=== PATIENT | female | born 1985 | race Caucasian/White ===

== ENCOUNTER 2017-02-25 09:23 | Emergency (ER) | payer OTHER ==
[2017-02-25 09:34] VITALS: BP 107/60; PULSE 83; TEMP 98.1; BMI 24.5
--- NOTE | 2017-02-25 10:06 | PDOC ---
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 Patient reports that rash usually starts on the time of her period this month has worsened. Been applying alcohol, symptoms are worsening. Denies any new lotions or soaps or detergents. No respiratory difficulty, no wheezing. No difficulty swallowing. Past Medical History: Denies. Allergies: No known allergies Medications: None Family History: Non-contributory Social History: Denies smoking, alcohol use, or IVDU Review of Systems GENERAL/CONSTITUTIONAL: No fever or chills. No weakness. No weight change. HEAD, EYES, EARS, NOSE AND THROAT: No change in vision. No ear pain or discharge. No sore throat. CARDIOVASCULAR: No chest pain or shortness of breath. RESPIRATORY: No cough, wheezing, or hemoptysis. GASTROINTESTINAL: No nausea, vomiting, diarrhea or constipation. No rectal bleeding. GENITOURINARY: No dysuria, frequency, or change in urination. MUSCULOSKELETAL: No joint or muscle swelling or pain. No neck or back pain. SKIN: Macular pruritic rash HEMATOLOGIC/LYMPHATIC: No anemia, easy bleeding, or history of blood clots. No lymphadenopathy ALLERGIC/IMMUNOLOGIC: No hives or skin allergy. No latex allergy. Physical Exam: GENERAL: The patient is awake, alert, and fully oriented, in no acute distress. EYES: Pupils equal, round and reactive to light, extraocular movements intact, sclera anicteric, conjunctiva clear. ENT: Ears normal, nares patent, oropharynx clear without exudates. Moist mucous membranes. No uvula deviation NECK: Normal range of motion, supple without lymphadenopathy, JVD, or masses. LUNGS: Breath sounds equal, clear to auscultation bilaterally. No wheezes, and no crackles. HEART: Regular rate and rhythm, normal S1 and S2 without murmur, rub or gallop. ABDOMEN: Soft, nontender, normoactive bowel sounds. No guarding, no rebound. No masses. No bruising or abrasions MUSCULOSKELETAL: Normal range of motion, no edema. No clubbing or cyanosis. No cords, erythema, or tenderness. No CVA Tenderness NEUROLOGICAL: Cranial nerves II through XII grossly intact. Normal speech, normal gait. SKIN: Macular pruritic rash under arms, bilateral lateral knees and under bra strap. 02/25/17 10:49 Timing/Duration: reports: week Severity: Yes: moderate Location: reports: other (under arms, lateral knees, posterior torso near the bra line. ) Respiratory Risk Factors: reports: no cause identified Associated Symptoms: reports: rash Past History - Past Medical History Allergies/Adverse Reactions: Allergies Allergy/AdvReac Type Severity Reaction Status Date / Time No Known Allergies Allergy Verified 02/25/17 09:24 Home Medications: Ambulatory Orders Hydrocortisone 2.5% Lotion [Hytone 2.5% Lotion -] 1 applic TP BID #1 bottle Asthma: No Cancer: No Cardiac Disorders: No Diabetes: No HTN: No Seizures: No Thyroid Disease: No Other medical history: none - Surgical History Abdominal Surgery: Yes Appendectomy: Yes - Reproductive History Cervical CA: No Dysfunctional Uterine Bleeding: No Ectopic : No Endometrial CA: No Polycystic Ovaries: No Therapeutic (s) & number: No Tubal Ligation: No - Immunization History Immunization Up to Date: Yes - Psycho/Social/Smoking Cessation Hx Anxiety: No Suicidal Ideation: No Smoking Status: No Smoking History: Never smoked Have you smoked in the past 12 months: No Number of Cigarettes Smoked Daily: 0 Information on smoking cessation initiated: No Hx Alcohol Use: No Drug/Substance Use Hx: No Substance Use Type: None Hx Substance Use Treatment: No *Physical Exam - Vital Signs Last Vital Signs Temp Pulse Resp BP Pulse Ox 98.1 F 83 18 107/60 100 02/25/17 09:26 02/25/17 09:26 02/25/17 09:26 02/25/17 09:26 02/25/17 09:26 Medical Decision Making - Medical Decision Making 02/25/17 10:06 A/P: Patient with pruritic rash, unknown origin. May be hormonal versus a contact dermatitis, patient reports rash coincides with periods. Encourage patient to follow-up with dermatology, will treat symptoms of pruritus. Hydrocortisone 2% cream ordered which strict follow-up instructions. Patient verbalized understanding. Explained to patient she should not apply alcohol as this may worsen symptoms. *DC/Admit/Observation/Transfer Diagnosis at time of Disposition: Rash and nonspecific skin eruption - Discharge Dispostion Disposition: HOME Condition at time of disposition: Good Admit: No - Prescriptions Prescriptions: Hydrocortisone 2.5% Lotion [Hytone 2.5% Lotion -] 1 applic TP BID #1 bottle - Referrals Referrals: Clifford Gan [Non Staff, Medical] - - Patient Instructions Printed Discharge Instructions: DI for Rash Additional Instructions: No new lotion soaps or detergents Recommend follow-up with dermatology please do not apply alcohol to rash as this may worsen symptoms.
== END 2017-02-25 10:16 | disposition home or self-care (01) ==
LOC: JER 09:23
DX: R21 Rash and other nonspecific skin eruption (principal)
CPT/HCPCS: 99281-25

== ENCOUNTER 2017-07-26 16:16 | Emergency (ER) | payer OTHER ==
[2017-07-26 16:35] VITALS: BMI 22.6
--- NOTE | 2017-07-26 17:23 | PDOC ---
History of Present Illness - General History Source: Patient Exam Limitations: No Limitations - History of Present Illness Initial Comments: 07/26/17 18:18 The patient is a 31 year old female, with a significant past medical history of frequent vaginal infections and anemia, who presents to the emergency department with RLQ pain and epigastric pain for approximately 5 days. The patient reports lifting a heavy box 6 days ago and in the evening she noted a mass in her RLQ with associated pain. Patient reports associated nausea, vomiting(nonbloody/nonbilious), diarrhea(2-5 episodes per day), but no constipation. She reports a subjective fever, chills, and headache since today. Patient reports taking tylenol for the pain with minimal relief of symptoms. She denies any cough or dizziness. She denies any vaginal bleeding or spotting. Patient reports contacting her PCP, Dr. Lafleur, who thought patient had a hernia and would contact her for further evaluation. Patient reports coming in today, because her pain is the worse it has been all week. She reports some dysuria and urinary frequency, but denies any hematuria or urgency. She denies any chest pain, shortness of breath, diaphoresis, or palpitations. Patient reports her LMP was approximately 15 days ago. Allergies: NKDA Past Surgical History: Appendectomy, C-SectionsX2 Social History: Non smoker. No ETOH or recreational drug use. PCP: Dr. Del Real <Katya Lockwood - Last Filed: 07/26/17 18:18> <Nichole Corey - Last Filed: 07/26/17 18:52> - General Chief Complaint: Pain Stated Complaint: CYST PAIN Time Seen by Provider: 07/26/17 17:14 Past History <Katya Lockwood - Last Filed: 07/26/17 18:18> - Past Medical History Asthma: No Cancer: No Cardiac Disorders: No Diabetes: No HTN: No Seizures: No Thyroid Disease: No - Surgical History Abdominal Surgery: Yes Appendectomy: Yes - Reproductive History Cervical CA: No Dysfunctional Uterine Bleeding: No Ectopic : No Endometrial CA: No Polycystic Ovaries: No Therapeutic (s) & number: No Tubal Ligation: No - Immunization History Immunization Up to Date: Yes - Suicide/Smoking/Psychosocial Hx Smoking Status: No Smoking History: Never smoked Have you smoked in the past 12 months: No Number of Cigarettes Smoked Daily: 0 Information on smoking cessation initiated: No Hx Alcohol Use: No Drug/Substance Use Hx: No Substance Use Type: None Hx Substance Use Treatment: No <Nichole Corey - Last Filed: 07/26/17 18:52> - Past Medical History Allergies/Adverse Reactions: Allergies Allergy/AdvReac Type Severity Reaction Status Date / Time No Known Allergies Allergy Verified 07/26/17 16:32 Home Medications: Ambulatory Orders Hydrocortisone 2.5% Lotion [Hytone 2.5% Lotion -] 1 applic TP BID #1 bottle Review of Systems - Review of Systems Able to Perform ROS?: Yes Comments:: 07/26/17 18:18 GENERAL/CONSTITUTIONAL: Yes: fever, chills. No weakness. HEAD, EYES, EARS, NOSE AND THROAT: No change in vision. No ear pain or discharge. No sore throat. GASTROINTESTINAL: Yes nausea, vomiting, diarrhea, RLQ/epigastric pain. No constipation. GENITOURINARY: Yes dysuria, frequency. No hematuria or urgency. PELVIC: No vaginal bleeding or discharge. CARDIOVASCULAR: No chest pain or shortness of breath. RESPIRATORY: No cough, wheezing, or hemoptysis. MUSCULOSKELETAL: Yes RLQ pain secondary to possible hernia. No other joint or muscle swelling or pain. No neck or back pain. SKIN: No rash NEUROLOGIC: No headache, vertigo, loss of consciousness, or change in strength/ sensation. ENDOCRINE: No increased thirst. No abnormal weight change. HEMATOLOGIC/LYMPHATIC: No anemia, easy bleeding, or history of blood clots. ALLERGIC/IMMUNOLOGIC: No hives or skin allergy. <Katya Lockwood - Last Filed: 07/26/17 18:18> *Physical Exam - Vital Signs Last Vital Signs Temp Pulse Resp BP Pulse Ox 98.0 F 61 18 114/77 100 07/26/17 16:32 07/26/17 16:32 07/26/17 16:32 07/26/17 16:32 07/26/17 16:32 - Physical Exam Comments: 07/26/17 18:18 Constitutional: Awake, alert, oriented. No acute distress. Head: Normocephalic. Atraumatic Eyes: PERRL. EOMI. Conjunctivae are not pale. ENT: Mucous membranes are moist and intact. Posterior pharynx without exudates or erythema. Uvula midline. Neck: Supple. Full ROM. No lymphadenopathy. Cardiovascular: Regular rate. Regular rhythm. S1, S2 regular. Distal pulses are 2+ and symmetric. Pulmonary/Chest: No evidence of respiratory distress. Clear to auscultation bilaterally No wheezing, rales or rhonchi. Abdominal: Diffuse tenderness epigastrically, and in the RLQ/LLQs. Soft and non-distended. No rebound, guarding or rigidity. No organomegaly. No palpable masses. Good bowel sounds. Back: No CVA tenderness. Lower midline incision. No hernia. Musculoskeletal: No edema. No cyanosis. No clubbing. Full range of motion in all extremities. No calf tenderness. Radial/pedal pulses are intact and 2+ bilaterally Skin: Skin is warm and dry. No petechiae. No purpura. Neurological: Alert and oriented to person, place, and time. Cranial nerves II -XII are grossly intact. Normal speech. Strength is grossly symmetric. No sensory deficits. Psychiatric: Good eye contact. Normal interaction, affect and behavior. <Katya Lockwood - Last Filed: 07/26/17 18:18> - Vital Signs Last Vital Signs Temp Pulse Resp BP Pulse Ox 98.0 F 61 18 114/77 100 07/26/17 16:32 07/26/17 16:32 07/26/17 16:32 07/26/17 16:32 07/26/17 16:32 <Nichole Corey - Last Filed: 07/26/17 18:52> ED Treatment Course - LABORATORY CBC & Chemistry Diagram: 07/26/17 18:30 07/26/17 18:30 <Nichole Corey - Last Filed: 07/26/17 18:52> Medical Decision Making - Medical Decision Making 07/26/17 18:15 a/p: 31yo female with diffuse lower abd pain assoc with n/v/d -labs -ct abd/pelvis -ivf hydration -ua -nausea control -poss colitis vs gastroenteritis vs partial bowel obstruction 07/26/17 18:51 pt will be signed out to the oncoming ED physician pending labs and imaging. <Nichole Corey - Last Filed: 07/26/17 18:52> *DC/Admit/Observation/Transfer - Attestations Scribe Attestion: 07/26/17 18:19 Documentation prepared by Katya Lockwood, acting as electromedical equipment repairer for Nichole Corey DO. <Katya Lockwood - Last Filed: 07/26/17 18:18> - Attestations Physician Attestion: 07/26/17 18:52 I, Dr. Nichole Corey DO, attest that this document has been prepared under my direction and personally reviewed by me in its entirety. I further attest, that it accurately reflects all work, treatment, procedures and medical decision -making performed by me. <Nichole Corey - Last Filed: 07/26/17 18:52> Diagnosis at time of Disposition: Abdominal pain - Referrals Referrals: Lisa Simms MD [Primary Care Provider] -
[2017-07-26] MEDS ORDERED: FAMOTIDINE 20 MG/50 ML IVPB 50 ML IVPB ONE ×2 (17:57→18:06)
[2017-07-26] MEDS ORDERED: ONDANSETRON 4 MG/2 ML VIAL IVPUSH ONE (17:57)
[2017-07-26] MEDS ORDERED: SODIUM CHLORIDE 0.9% 1000 ML INFUS.BAG IV ONE (17:57)
[2017-07-26] MEDS ORDERED: ONDANSETRON 4 MG/2 ML VIAL ONE (18:06)
[2017-07-26] MEDS ORDERED: morphine CARPU-JECT 2 MG/1 ML DISP.SYRIN IVPUSH ONE (18:07)
[2017-07-26 18:49] LABS: BASOPHIL 0.5 % (0-2.0); EOSINOPHIL 2.1 % (0-4.5); MCH 29.4 pg (25.7-33.7); MCHC 33.9 g/dl (32.0-36.0); MEAN CELL VOLUME 86.9 fl (80-96); MEAN PLT VOLUME 8.3 fl (7.5-11.1); NEUTROPHILS 70.1 % (42.8-82.8); PLATELET COUNT 304 K/MM3 (134-434); RDW 13.4 % (11.6-15.6)
[2017-07-26 18:54] LABS: URINE APPEARANCE SLCLOUDY; URINE BILIRUBIN NEGATIVE (NEGATIVE); URINE BLOOD 2+ (NEGATIVE); URINE COLOR LTYELLOW; URINE GLUCOSE (UA) NEGATIVE (NEGATIVE); URINE KETONE NEGATIVE (NEGATIVE); URINE NITRITE NEGATIVE (NEGATIVE); URINE PROTEIN NEGATIVE (NEGATIVE); URINE UROBILINOGEN NEGATIVE mg/dL (0.2-1.0)
[2017-07-26 19:18] LABS: INR 1.03 (0.82-1.09); PROTHROMBIN TIME (PATIENT) 11.6 SEC (9.98-11.88)
[2017-07-26 19:20] LABS: ACTIVATED PTT 28.2 SECONDS (26.9-34.4)
[2017-07-26 19:26] LABS: ALBUMIN 4.4 g/dl (3.4-5.0); ALK PHOS 90 U/L (45-117); ANION GAP 9 (8-16); BILIRUBIN,TOTAL 0.3 mg/dL (0.2-1.0); CALCIUM 9.2 mg/dL (8.5-10.1); CO2 23 mmol/L (21-32); CREATININE 0.6 mg/dL (0.55-1.02); GLUCOSE,RANDOM 86 mg/dL (74-106); MAGNESIUM 2.3 mg/dL (1.8-2.4); SGOT/AST 12 U/L (15-37); SGPT/ALT 15 U/L (12-78); TOT PROT 8.6 g/dl (6.4-8.2)
--- NOTE | 2017-07-26 19:36 | PDOC ---
*Physical Exam - Vital Signs Last Vital Signs Temp Pulse Resp BP Pulse Ox 98.0 F 61 18 114/77 100 07/26/17 16:32 07/26/17 16:32 07/26/17 16:32 07/26/17 16:32 07/26/17 16:32 - Physical Exam Comments: 07/26/17 22:38 Exam: Copious amounts of vaginal discharge, CMT, uterus is normal size <Stacia Braswell - Last Filed: 07/26/17 22:38> - Vital Signs Last Vital Signs Temp Pulse Resp BP Pulse Ox 98.0 F 61 18 114/77 100 07/26/17 16:32 07/26/17 16:32 07/26/17 16:32 07/26/17 16:32 07/26/17 16:32 <Isaías Borrero - Last Filed: 07/26/17 22:58> ED Treatment Course - LABORATORY CBC & Chemistry Diagram: 07/26/17 18:30 07/26/17 18:30 - ADDITIONAL ORDERS Additional order review: Laboratory Results 07/26/17 07/26/17 07/26/17 18:30 18:30 18:30 PT with INR 11.60 INR 1.03 PTT (Actin FS) 28.2 Sodium 137 Potassium 4.1 Chloride 105 Carbon Dioxide 23 Anion Gap 9 BUN 12 D Creatinine 0.6 Creat Clearance w eGFR > 60 Random Glucose 86 D Calcium 9.2 Magnesium 2.3 D Total Bilirubin 0.3 D AST 12 L D ALT 15 D Alkaline Phosphatase 90 D Total Protein 8.6 H D Albumin 4.4 D Urine Color Ltyellow Urine Appearance Slcloudy Urine pH 5.0 Ur Specific [place] 1.020 Urine Protein Negative Urine Glucose (UA) Negative Urine Ketones Negative Urine Blood 2+ H Urine Nitrite Negative Urine Bilirubin Negative Urine Urobilinogen Negative Ur Leukocyte Esterase Negative Urine RBC 12 Urine WBC 4 Ur Epithelial Cells Few Urine Bacteria Rare Urine Mucus Rare Urine HCG, Qual Negative 07/26/17 18:30 RBC 5.26 H D MCV 86.9 MCHC 33.9 RDW 13.4 MPV 8.3 Neutrophils % 70.1 Lymphocytes % 20.2 D Monocytes % 7.1 Eosinophils % 2.1 Basophils % 0.5 - Medications Given in the ED: ED Medications Discontinued Medications Generic Name Dose Route Start Last Admin Trade Name Freq PRN Reason Stop Dose Admin Fentanyl 25 mcg 07/26/17 18:35 07/26/17 18:44 Sublimaze Injection - IVPUSH 07/26/17 18:36 25 mcg ONCE ONE Administration Famotidine/Sodium Chloride 50 mls @ 100 mls/hr 07/26/17 17:57 07/26/17 18:15 Pepcid 20 Mg Premixed Ivpb - IVPB 07/26/17 18:26 100 mls/hr ONCE ONE Administration Morphine Sulfate 2 mg 07/26/17 18:07 07/26/17 18:45 Morphine Injection - IVPUSH 07/26/17 18:08 Not Given ONCE ONE Ondansetron HCl 4 mg 07/26/17 17:57 07/26/17 18:15 Zofran Injection IVPUSH 07/26/17 17:58 4 mg ONCE ONE Administration Sodium Chloride 1,000 ml 07/26/17 17:57 07/26/17 18:15 Normal Saline - IV 07/26/17 17:58 1,000 ml ONCE ONE Administration <Stacia Braswell - Last Filed: 07/26/17 22:38> - LABORATORY CBC & Chemistry Diagram: 07/26/17 18:30 07/26/17 18:30 - ADDITIONAL ORDERS Additional order review: Laboratory Results 07/26/17 07/26/17 18:30 18:30 PT with INR 11.60 INR 1.03 PTT (Actin FS) 28.2 Sodium 137 Potassium 4.1 Chloride 105 Carbon Dioxide 23 Anion Gap 9 BUN 12 D Creatinine 0.6 Creat Clearance w eGFR > 60 Random Glucose 86 D Calcium 9.2 Magnesium 2.3 D Total Bilirubin 0.3 D AST 12 L D ALT 15 D Alkaline Phosphatase 90 D Total Protein 8.6 H D Albumin 4.4 D 07/26/17 18:30 RBC 5.26 H D MCV 86.9 MCHC 33.9 RDW 13.4 MPV 8.3 Neutrophils % 70.1 Lymphocytes % 20.2 D Monocytes % 7.1 Eosinophils % 2.1 Basophils % 0.5 - Medications Given in the ED: ED Medications Discontinued Medications Generic Name Dose Route Start Last Admin Trade Name Isha PRN Reason Stop Dose Admin Fentanyl 25 mcg 07/26/17 18:35 07/26/17 18:44 Sublimaze Injection - IVPUSH 07/26/17 18:36 25 mcg ONCE ONE Administration Famotidine/Sodium Chloride 50 mls @ 100 mls/hr 07/26/17 17:57 07/26/17 18:15 Pepcid 20 Mg Premixed Ivpb - IVPB 07/26/17 18:26 100 mls/hr ONCE ONE Administration Morphine Sulfate 2 mg 07/26/17 18:07 07/26/17 18:45 Morphine Injection - IVPUSH 07/26/17 18:08 Not Given ONCE ONE Ondansetron HCl 4 mg 07/26/17 17:57 07/26/17 18:15 Zofran Injection IVPUSH 07/26/17 17:58 4 mg ONCE ONE Administration Sodium Chloride 1,000 ml 07/26/17 17:57 07/26/17 18:15 Normal Saline - IV 07/26/17 17:58 1,000 ml ONCE ONE Administration <Isaías Borrero - Last Filed: 07/26/17 22:58> *DC/Admit/Observation/Transfer <Stacia Braswell - Last Filed: 07/26/17 22:38> - Discharge Dispostion Admit: No - Attestations Physician Attestion: 07/26/17 19:35 I, Dr. Isaías Borrero, attest that this document has been prepared under my direction and personally reviewed by me in its entirety. I further attest, that it accurately reflects all work, treatment, procedures and medical decision -making performed by me. 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 Return to us if worse or any new symptoms occur. Best- Dr. Isaías Borrero - Post Discharge Activity
[2017-07-26 20:10] LABS: URINE BACTERIA RARE /hpf (NONE SEEN); URINE MUCUS RARE; URINE RBC 12 /hpf (0-3); URINE WBC 4 /hpf (3-5)
[2017-07-26 21:11] LABS: URINE LEUK ESTERASE Negative (NEGATIVE)
[2017-07-26] MEDS ORDERED: AZITHROMYCIN 1 GM PACKET PO ONE (22:37)
[2017-07-26] MEDS ORDERED: AZITHROMYCIN 250 MG TABLET ONE (22:41)
[2017-07-26] MEDS ORDERED: cefTRIAXone SODIUM 1 GM VIAL ONE (22:43)
[2017-07-26 23:18] VITALS: BP 100/61; PULSE 71; TEMP 98.5
== END 2017-07-26 23:18 | disposition home or self-care (01) ==
LOC: JER 16:16
PROC: 3E02329 Introduction of Other Anti-infective into Muscle, Percutaneous Approach (ICD-10-PCS; principal; 2017-07-26)
PROC: 3E033GC Introduction of Other Therapeutic Substance into Peripheral Vein, Percutaneous Approach (ICD-10-PCS; 2017-07-26)
PROC: 3E033NZ Introduction of Analgesics, Hypnotics, Sedatives into Peripheral Vein, Percutaneous Approach (ICD-10-PCS; 2017-07-26)
PROC: 3E033NZ Introduction of Analgesics, Hypnotics, Sedatives into Peripheral Vein, Percutaneous Approach (ICD-10-PCS; 2017-07-26)
PROC: 3E033GC Introduction of Other Therapeutic Substance into Peripheral Vein, Percutaneous Approach (ICD-10-PCS; 2017-07-26)
DX: R10.84 Generalized abdominal pain (principal); R19.03 Right lower quadrant abdominal swelling, mass and lump; N73.8 Other specified female pelvic inflammatory diseases
CPT/HCPCS: 36415; 74177-TC; 80053; 81003; 81015; 83735; 84703; 85025; 85610; 85730; 86593; 99282-25

== ENCOUNTER 2018-10-11 17:06 | Emergency (ER) | payer OTHER ==
[2018-10-11 17:14] VITALS: BMI 41.0
--- NOTE | 2018-10-11 17:21 | PDOC ---
History of Present Illness - General Chief Complaint: Headache Stated Complaint: HEAD PAIN Time Seen by Provider: 10/11/18 17:17 History Source: Patient Exam Limitations: No Limitations - History of Present Illness Initial Comments: Pt is a 32 yo F, with PMH of fibroids and ovarian cysts, who is presenting with complaints of mild headache and RLQ abdominal pain. PT states starting yesterday evening around 5 pm, she started having a "migraine headache". Pt also took a home test yesterday which was positive, and did not want to take any OTC pain medication for concern that it may affect the . This morning, she noticed RLQ abdominal pain. The pain is intermittent, sharp, and lasts only a few seconds and then resolves on its own. LMP was ~5.5 weeks ago and was normal. She has had nausea but no vomiting over the past few weeks. She has also noticed mild dysuria x2 weeks. Pt denies any fevers/chills, headache, vision changes, syncope, chest pain, palpitations, SOB, vomiting, hematuria/urgency/frequency, vaginal bleeding or discharge, diarrhea/ constipation, or leg swelling. LMP: Sep 03 Social: Pt denies any cigarette, alcohol, or drug use. Pt denies any recent travel or sick contacts. Surgical: appendectomy. Family: no relevant history. 10/11/18 18:41 Past History - Travel Traveled outside of the country in the last 30 days: No Close contact w/someone who was outside of country & ill: No - Past Medical History Allergies/Adverse Reactions: Allergies Allergy/AdvReac Type Severity Reaction Status Date / Time No Known Allergies Allergy Verified 10/11/18 17:12 Home Medications: Ambulatory Orders NK [No Known Home Medication] 10/11/18 Asthma: No Cancer: No Cardiac Disorders: No COPD: No Diabetes: No HTN: No Seizures: No Thyroid Disease: No - Surgical History Abdominal Surgery: Yes Appendectomy: Yes - Reproductive History Cervical CA: No Dysfunctional Uterine Bleeding: No Ectopic : No Endometrial CA: No Polycystic Ovaries: No Therapeutic (s) & number: No Tubal Ligation: No - Immunization History Immunization Up to Date: Yes - Suicide/Smoking/Psychosocial Hx Smoking Status: No Smoking History: Never smoked Have you smoked in the past 12 months: No Number of Cigarettes Smoked Daily: 0 Hx Alcohol Use: No Drug/Substance Use Hx: No Substance Use Type: None Hx Substance Use Treatment: No Review of Systems - Review of Systems Able to Perform ROS?: Yes Is the patient limited Wolof proficient: No Constitutional: Yes: Weight Stable. No: Chills, Diaphoresis, Fever, Loss of Appetite, Weakness HEENTM: No: Recent change in vision, Nose Congestion Respiratory: No: Cough, Orthopnea, Shortness of Breath Cardiac (ROS): No: Chest Pain, Irregular Heart Rate, Syncope ABD/GI: Yes: See HPI, Nausea, Abdominal cramping. No: Constipated, Diarrhea, Poor Appetite, Poor Fluid Intake, Vomiting : Yes: Burning, Dysuria. No: Discharge, Frequency, Flank Pain, Hematuria, Incontinence, Pain, Urgency Musculoskeletal: No: Back Pain, Joint Pain Integumentary: No: Rash Neurological: Yes: Headache. No: Weakness, Unsteady Gait, Dizziness Psychiatric: No: Sleep Pattern Change, Change in Appetite Endocrine: No: Increased Urine, Change in Weight Hematologic/Lymphatic: No: Anemia, Blood Clots, Easy Bleeding, Easy Bruising All Other Systems: Reviewed and Negative *Physical Exam - Vital Signs Last Vital Signs Temp Pulse Resp BP Pulse Ox 98.7 F 94 H 16 130/84 99 10/11/18 17:12 10/11/18 17:12 10/11/18 17:12 10/11/18 17:12 10/11/18 17:12 - Physical Exam General Appearance: Yes: Nourished, Appropriately Dressed. No: Apparent Distress HEENT: positive: EOMI, DAVID, Normal ENT Inspection, Normal Voice, Pharynx Normal , Hearing Grossly Normal. negative: Scleral Icterus (R), Scleral Icterus (L), Pharyngeal Erythema, Tonsillar Exudate, Tonsillar Erythema Neck: positive: Trachea midline, Normal Thyroid, Supple. negative: Tender, Rigid, Decreased range of motion, Lymphadenopathy (R), Lymphadenopathy (L) Respiratory/Chest: positive: Lungs Clear, Normal Breath Sounds. negative: Chest Tender, Respiratory Distress, Accessory Muscle Use, Crackles, Wheezing Cardiovascular: positive: Regular Rhythm, Regular Rate, S1, S2. negative: Edema , JVD, Murmur Vascular Pulses: Carotid (R): 4+, Carotid (L): 4+ Female Pelvic Exam: positive: normal external exam, cervical os closed, normal adnexa, normal size ovaries, adnexal tenderness (R adnexal tenderness). negative: CMT, discharge, vaginal bleeding Gastrointestinal/Abdominal: positive: Normal Bowel Sounds, Flat, Soft. negative : Tender, Organomegaly, Pulsatile Mass, Distended, Guarding, Rebound Rectal Exam: positive: deferred Lymphatic: negative: Adenopathy, Tenderness Musculoskeletal: positive: Normal Inspection. negative: CVA Tenderness Extremity: positive: Normal Capillary Refill, Normal Inspection, Normal Range of Motion, Pelvis Stable. negative: Tender, Pedal Edema Integumentary: positive: Normal Color, Dry, Warm. negative: Jaundice, Clammy, Diaphoresis, Rash Neurologic: positive: virtualization architect II-XII NML intact, Fully Oriented, Alert, Normal Mood/ Affect, Normal Response, Motor Strength 5/5 Moderate Sedation - Procedure Monitoring Vital Signs: Procedure Monitoring Vital Signs Temperature 98.7 F 10/11/18 17:12 Pulse Rate 94 H 10/11/18 17:12 Respiratory Rate 16 10/11/18 17:12 Blood Pressure 130/84 10/11/18 17:12 O2 Sat by Pulse Oximetry (%) 99 10/11/18 17:12 Medical Decision Making - Medical Decision Making Pt was seen at bedside, also will be seen by attending Dr. Hines. Pt presenting with complaints of mild headache and RLQ abdominal pain. PT states starting yesterday evening around 5 pm, she started having a "migraine headache". Pt also took a home test yesterday which was positive, and did not want to take any OTC pain medication for concern that it may affect the . This morning, she noticed RLQ abdominal pain. The pain is intermittent, sharp, and lasts only a few seconds and then resolves on its own. LMP was ~5.5 weeks ago and was normal. She has had nausea but no vomiting over the past few weeks. She has also noticed mild dysuria x2 weeks. Pt denies any fevers/chills, headache, vision changes, syncope, chest pain, palpitations, SOB, vomiting, hematuria/urgency/frequency, vaginal bleeding or discharge, diarrhea/ constipation, or leg swelling. Vitals stable, pt afebrile. Pt appears comfortable and can ambulate. PE showed mild R adnexal tenderness, physiologic vaginal discharge, no bleeding in the vaginal canal. Cervix closed, no CMT tenderness. Heart and lung sounds clear. Considering normal vs ovarian cyst vs UTI vs ectopic vs ovarian torsion. Pt has had appendix removed, unlikely appe. Ordered work-up including UA, urine culture, urine beta-hcg, and transvaginal US (r/o ectopic, cysts). Provided 650 mg PO tylenol for improvement of mild headache. Will continue to reassess pt and monitor for symptomatic improvement. 10/11/18 18:32 Pt taken for US. Urine was sent to lab. 10/11/18 18:41 Urine test positive. Pending UA and US read. 10/11/18 19:32 UA negative for infection. Received verbal read from imaging on-call (Dr. Norris), as US had mislabeled the ovarian pictures. Dr. Norris stated the gestational sac was 5 weeks, 4 days, with no pole visualized yet. R ovarian cyst. No evidence of ectopic or ovarian torsion. 10/11/18 21:05 Pt can be discharged to home with follow-up. Pt advised to follow-up with PCP in 1-2 days and has been referred to ob/gynecology (Dr. Castrejon). Strict return precautions provided with pt understanding. 10/11/18 21:07 *DC/Admit/Observation/Transfer Diagnosis at time of Disposition: Qualifiers: Weeks of gestation: less than 8 weeks Qualified Code(s): Z3A.01 - Less than 8 weeks gestation of Ovarian cyst Qualifiers: Laterality: right Qualified Code(s): N83.201 - Unspecified ovarian cyst, right side - Discharge Dispostion Disposition: HOME Condition at time of disposition: Good Decision to Admit order: No - Referrals Referrals: Lisa Simms MD [Staff Physician] - Sonny Castrejon MD [Staff Physician] - - Patient Instructions Printed Discharge Instructions: DI for Ovarian Cyst, DI for Abdominal Pain -- Early Additional Instructions: You were seen in the ER today for abdominal pain. The results of your labs and imaging today showed a positive test. Please follow-up with your primary care doctor and the biomedical field service engineer doctor within 1-2 days to discuss your visit and make sure your symptoms have improved. Please return to the ER if you have any worsening pain, development of fevers or chills, loss of consciousness, inability to tolerate food or fluids, or any other concerns. Your ultrasound showed a gestational sac that was 5 weeks, 4 days, with no pole visualized yet. There was also a R ovarian cyst. No evidence of ectopic or ovarian torsion. Print Language: INDONESIAN - Post Discharge Activity
[2018-10-11] MEDS ORDERED: ACETAMINOPHEN 325 MG TABLET (FP) PO ONE (17:49)
[2018-10-11] MEDS ORDERED: ACETAMINOPHEN 325 MG TABLET (FP) ONE (17:56)
[2018-10-11 18:17] LABS: HCG,QUALITATIVE URINE Positive
[2018-10-11 19:14] LABS: URINE APPEARANCE SLCLOUDY; URINE BILIRUBIN NEGATIVE (<2.0 mg/dL); URINE COLOR YELLOW; URINE GLUCOSE (UA) 2+ (NEGATIVE); URINE KETONE NEGATIVE (NEGATIVE); URINE LEUK ESTERASE NEGATIVE (NEGATIVE); URINE NITRITE NEGATIVE (NEGATIVE); URINE PROTEIN NEGATIVE (NEGATIVE); URINE UROBILINOGEN NEGATIVE mg/dL (0.2-1.0)
--- NOTE | 2018-10-11 19:26 | PDOC ---
Attending Attestation - HPI HPI: 10/11/18 19:26 The patient is a 32 year old female, A1, with a PMH of ovarian cyst and fibroid presenting to the ER with a frontal headache, nausea, and right lower quadrant pain since yesterday. Patient denies taking any medication. Patient states she had a positive test yesterday. Patient denies any history of kidney stones. Patient admits to having an appendectomy. Patient is not currently following with an ACQUISITION COST ESTIMATOR. LMP was on September 03, 2018, but notes she usually has irregular menstrual cycles. Allergies: NKDA Surgical Hx: appendectomy, 2 C-sections Social History: No reported alcohol, drug or cigarette use. <Maylin Garcia - Last Filed: 10/11/18 19:26> - Resident Resident Name: Magi Cabello - ED Attending Attestation I have performed the following: I have examined & evaluated the patient, The case was reviewed & discussed with the resident, I agree w/resident's findings & plan - HPI HPI: 10/11/18 19:23 Pt comes concerned because home preg test was positive and she has abd pain and a slight ACHARYA, which is nor reduced - Physicial Exam PE: 10/11/18 19:24 Agree with resident exam - Medical Decision Making 10/11/18 19:26 Awaiting official sono results. 10/11/18 19:26 Pt's blood type is A+ she has no vag bleed on exam or history of it during this . No need to worry about rhogam regardless. 10/12/18 05:23 Patient Name: LUIS WILL THIS IS A PRELIMINARY REPORT FROM [facility]ING [facility] DATE OF SERVICE: 2018-10-11 18:14:39 IMAGES: 47 EXAM: TRANSVAGINAL US PREG . Grayscale, color flow and Doppler images provided. HISTORY: 32-year-old female with right lower quadrant pain. Cyst versus ectopic . COMPARISON: None. Findings: Uterus is retroverted in position. Uterus measures 6.9 x 5.1 x 5.6 cm. Intrauterine gestational sac with sac diameter consistent with 5 weeks 4 days. No yolk sac or pole identified within the gestational sac. Right ovary measures 3.8 x 3.0 x 3.1 cm. There is a right ovarian cyst measuring 2.0 x 2.8 x 2.0 cm. Color flow and Doppler arterial/venous signal to the right ovary demonstrated. Case discussed with referring technologist US jami Gómez; the left ovary is inadvertently labeled right ovary. The left ovary is normal configuration measuring 2.9 x 0.9 x 1.0 cm. Color-flow and Doppler arterial/venous signal to the left ovary demonstrated. No free fluid noted within the cul-de-sac. Impression: 1. Left ovary mislabeled with this examination. This will have to be rectified for a final report. 2. 2.8 x 2.0 x 2.0 cm right ovarian cyst. No evidence of right ovarian torsion. 3. Intrauterine gestational sac with gestational sac diameter 5 weeks 4 days; no pole or yolk sac present. viability not documented with this exam. <Tata Hines - Last Filed: 10/12/18 05:23>
[2018-10-11 19:44] LABS: EPI CELLS FEW /HPF (FEW); URINE MUCUS RARE
[2018-10-12 02:36] VITALS: BP 117/71; PULSE 80; TEMP 98.5
== END 2018-10-11 22:08 | disposition home or self-care (01) ==
LOC: JER 17:06
DX: O26.891 Other specified pregnancy related conditions, first trimester (principal); O34.81 Maternal care for other abnormalities of pelvic organs, first trimester; N83.201 Unspecified ovarian cyst, right side; Z3A.01 Less than 8 weeks gestation of pregnancy
CPT/HCPCS: 76817-TC; 81003; 81015; 84703; 87077; 87086; 99283-25

== ENCOUNTER 2018-10-15 11:11 | Emergency (ER) | payer OTHER ==
[2018-10-15 11:23] VITALS: BMI 21.4
[2018-10-15] MEDS ORDERED: SODIUM CHLORIDE 1,000 ML IV STA (11:49)
[2018-10-15] MEDS ORDERED: ACETAMINOPHEN 1000 MG/100 ML VIAL (NON FORMULARY) IVPB ONE (11:49)
[2018-10-15] MEDS ORDERED: ACETAMINOPHEN INJECTION 100 ML IVPB ONE (11:55)
--- NOTE | 2018-10-15 12:10 | PDOC ---
History of Present Illness - General Chief Complaint: Pain Stated Complaint: PAIN Time Seen by Provider: 10/15/18 11:41 - History of Present Illness Initial Comments: 10/15/18 12:06 The patient is a 32 year old female, A1, with a PMH of ovarian cyst and fibroid presenting to the ER with a nausea, lower abdominal pain, and back pain for the past 3 days. Patient was seen in this ER on 10/11/18 for similar symptoms. Patient had an ultrasound then which showed an intrauterine at 5 weeks and 4 days as well as a 2.8 cm right ovarian cyst. Patient was discharged home on Tylenol but reports she has not been taking it at home. Patient returns today because her lower back pain is persistent, and she is continuing to have intermittent sharp pains to her lower abdomen with associated nausea. Patient denies any vaginal spotting. Patient reports having threatened abortions two other times in the past and one miscarriage. Patient reports having an appendectomy and 2 c-sections in the past. No other surgeries. The patient denies chest pain, shortness of breath, headache and dizziness. Denies fever, chills, vomit, diarrhea and constipation. Denies vaginal bleeding or discharge, dysuria, frequency, urgency and hematuria. Allergies: NKDA Surgical Hx: appendectomy, 2 C-sections Social History: No reported alcohol, drug or cigarette use. Past History - Past Medical History Allergies/Adverse Reactions: Allergies Allergy/AdvReac Type Severity Reaction Status Date / Time No Known Allergies Allergy Verified 10/11/18 17:12 Home Medications: Ambulatory Orders NK [No Known Home Medication] 10/11/18 Asthma: No Cancer: No Cardiac Disorders: No COPD: No Diabetes: No HTN: No Seizures: No Thyroid Disease: No - Surgical History Abdominal Surgery: Yes Appendectomy: Yes - Reproductive History Is Patient Now?: Yes (5 weeks ) (#): 4 Para: 2 Cervical CA: No Dysfunctional Uterine Bleeding: No Ectopic : No Endometrial CA: No Polycystic Ovaries: No Therapeutic (s) & number: No Tubal Ligation: No Spontaneous : 1 - Immunization History Immunization Up to Date: Yes - Suicide/Smoking/Psychosocial Hx Smoking Status: No Smoking History: Never smoked Have you smoked in the past 12 months: No Number of Cigarettes Smoked Daily: 0 Information on smoking cessation initiated: No Hx Alcohol Use: No Drug/Substance Use Hx: No Substance Use Type: None Hx Substance Use Treatment: No Review of Systems - Review of Systems Comments:: 10/15/18 12:07 GENERAL/CONSTITUTIONAL: No fever or chills. No weakness. HEAD, EYES, EARS, NOSE AND THROAT: No change in vision. No ear pain or discharge. No sore throat. CARDIOVASCULAR: No chest pain, no shortness of breath, no loss of consciousness RESPIRATORY: No cough, wheezing, or hemoptysis. GASTROINTESTINAL: No vomiting, diarrhea or constipation. (+) Lower abdominal pain. (+) nausea. GENITOURINARY: No dysuria, frequency, or change in urination. MUSCULOSKELETAL: No joint or muscle swelling or pain. No neck pain. (+) Lower back pain. SKIN: No rash NEUROLOGIC: No vertigo, no change in strength/sensation. ENDOCRINE: No increased thirst. No abnormal weight change. HEMATOLOGIC/LYMPHATIC: No anemia, easy bleeding, or history of blood clots. ALLERGIC/IMMUNOLOGIC: No hives or skin allergy. *Physical Exam - Vital Signs Last Vital Signs Temp Pulse Resp BP Pulse Ox 98.2 F 81 18 121/65 100 10/15/18 11:16 10/15/18 11:16 10/15/18 11:16 10/15/18 11:16 10/15/18 11:16 - Physical Exam Comments: 10/15/18 12:08 "GENERAL: Awake, alert, and fully oriented, in no acute distress. HEAD: No signs of trauma EYES: PERRLA, EOMI, sclera anicteric, conjunctiva clear ENT: Auricles normal inspection, hearing grossly normal, nares patent, oropharynx clear without exudates. Moist mucosa NECK: Nontender, no stepoffs, Normal ROM, supple, no lymphadenopathy, JVD, or masses LUNGS: Breath sounds equal, clear to auscultation bilaterally. No wheezes, and no crackles HEART: Regular rate and rhythm, normal S1 and S2, no murmurs, rubs or gallops ABDOMEN: + mild suprapubic TTP, normoactive bowel sounds. No guarding, no rebound. BACK: No CVAT, no midline TTP, no stepoffs EXTREMITIES: Normal range of motion, no edema. No clubbing or cyanosis. No cords, erythema, or tenderness NEUROLOGICAL: Cranial nerves II through XII intact. 5/5 strength and sensation in all extremities, Normal speech, normal gait, normal cerebellar function SKIN: Warm, Dry, normal turgor, no rashes or lesions noted. : no CMT, normal physiologic discharge, no bleeding, os closed Moderate Sedation - Procedure Monitoring Vital Signs: Procedure Monitoring Vital Signs Temperature 98.2 F 10/15/18 11:16 Pulse Rate 81 10/15/18 11:16 Respiratory Rate 18 10/15/18 11:16 Blood Pressure 121/65 10/15/18 11:16 O2 Sat by Pulse Oximetry (%) 100 10/15/18 11:16 ED Treatment Course - LABORATORY CBC & Chemistry Diagram: 10/15/18 12:00 10/15/18 12:00 - RADIOLOGY Radiology Studies Ordered: Category Date Time Status TRANSVAGINAL ULTRASOUND US [US] Stat Ultrasound 10/15/18 11:47 Ordered Medical Decision Making - Medical Decision Making 10/15/18 12:08 32 F with lower abdominal pain and back pain with nausea. Pt with known ovarian cyst on R side, but it was only 2 cm. Low suspicion for torsion but will r/o with US. WIll also obtain TVUS to r/o ectopic, as pt did not have yolk sac visualized on last US. - Labs, HCG, UA - TVUS - IVF, tylenol 10/15/18 13:43 Labs wnl HCG 13,000. No prior to compare. TVUS shows IUP @ approx 6 weeks with no FHR. Suspect demise Pt informed of results Will f/u with OB for repeat US and blood test. Pt reassessed - reports resolution of pain with tylenol. repeat exam benign. Pt is well appearing, with normal vitals. Clinically stable for DC at this time. I discussed the physical exam findings, ancillary test results and final diagnoses with the patient. I answered all of the patient's questions. The patient was satisfied with the care received and felt comfortable with the discharge plan and treatment plan. The patient agrees to follow up with the primary care physician within 24-72 hours. *DC/Admit/Observation/Transfer Diagnosis at time of Disposition: Abdominal pain affecting - Discharge Dispostion Disposition: HOME - Referrals Referrals: Adonay Bales MD [Staff Physician] - - Patient Instructions Printed Discharge Instructions: DI for Abdominal Pain -- Early Additional Instructions: Your ultrasound today did not show a heartbeat. This could mean that you are having a miscarriage. You must follow up with an station air traffic control specialist within 1 week for repeat ultrasound and blood tests. Call the number provided to make an appointment. If you experience worsening pain, bleeding, vomiting, fevers, or any other concerning symptoms, return to the ER immediately. Segundo sonograma de hoy no mostr un latido . Benham podra significar que est teniendo un aborto involuntario. Debe realizar un seguimiento con un obstetra / gineclogo dentro de 1 semana para repetir el ultrasonido y los anlisis de mir. Llame al nmero proporcionado para hacer christa sammy. Si tiene un empeoramiento del dolor, sangrado, vmitos, fiebres o cualquier otro sntoma relacionado con los sntomas, regrese a la rodríguez de emergencias inmediatamente. - Post Discharge Activity - Attestations Physician Attestion: 10/15/18 13:55 I, Dr. Marshal Will MD, attest that this document has been prepared under my direction and personally reviewed by me in its entirety. I further attest, that it accurately reflects all work, treatment, procedures and medical decision -making performed by me.
[2018-10-15 12:25] LABS: BASO % 0.5 % (0-2.0); EOS % 1.7 % (0-4.5); HEMATOCRIT 39.5 % (32.4-45.2); HEMOGLOBIN 13.9 GM/dL (10.7-15.3); LYMPH % 17.1 % (8-40); MCH 30.7 pg (25.7-33.7); MCHC 35.1 g/dl (32.0-36.0); MEAN CELL VOLUME 87.4 fl (80-96); MEAN PLT VOLUME 8.1 fl (7.5-11.1); MONO % 8.9 % (3.8-10.2); NEUT % 71.8 % (42.8-82.8); PLATELET COUNT 266 K/MM3 (134-434); RBC 4.52 M/mm3 (3.60-5.2); RDW 14.3 % (11.6-15.6)
[2018-10-15 12:30] LABS: URINE APPEARANCE CLOUDY; URINE BILIRUBIN NEGATIVE (<2.0 mg/dL); URINE COLOR YELLOW; URINE GLUCOSE (UA) 2+ (NEGATIVE); URINE KETONE NEGATIVE (NEGATIVE); URINE LEUK ESTERASE NEGATIVE (NEGATIVE); URINE NITRITE NEGATIVE (NEGATIVE); URINE PROTEIN NEGATIVE (NEGATIVE); URINE UROBILINOGEN NEGATIVE mg/dL (0.2-1.0)
[2018-10-15 12:49] LABS: ALBUMIN 3.7 g/dl (3.4-5.0); ALK PHOS 66 U/L (45-117); ANION GAP 8 MMOL/L (8-16); BILIRUBIN,TOTAL 0.3 mg/dL (0.2-1); BLOOD UREA NITROGEN 8 mg/dL (7-18); CALCIUM 8.7 mg/dL (8.5-10.1); CHLORIDE 108 mmol/L (98-107); CO2 22 mmol/L (21-32); CREATININE 0.5 mg/dL (0.55-1.3); GLUCOSE,RANDOM 79 mg/dL (74-106); SGOT/AST 22 U/L (15-37); SGPT/ALT 22 U/L (13-61); SODIUM 139 mmol/L (136-145); TOT PROT 7.4 g/dl (6.4-8.2)
[2018-10-15 14:15] VITALS: BP 119/73; PULSE 82; TEMP 98.3
== END 2018-10-15 14:13 | disposition home or self-care (01) ==
LOC: JER 11:11
PROC: 3E033NZ Introduction of Analgesics, Hypnotics, Sedatives into Peripheral Vein, Percutaneous Approach (ICD-10-PCS; principal; 2018-10-15)
PROC: 3E0337Z Introduction of Electrolytic and Water Balance Substance into Peripheral Vein, Percutaneous Approach (ICD-10-PCS; 2018-10-15)
DX: O26.891 Other specified pregnancy related conditions, first trimester (principal); R10.9 Unspecified abdominal pain
CPT/HCPCS: 36415; 76830-TC; 80053; 81003; 84702; 85025; 87086; 96361; 96374; 99283-25; J0131; J7030

== ENCOUNTER 2018-10-31 16:07 | Emergency (ER) | payer OTHER ==
[2018-10-31 16:13] VITALS: BP 101/65; PULSE 82; TEMP 98.2; BMI 20.7
--- NOTE | 2018-10-31 16:22 | PDOC ---
Rapid Medical Evaluation Chief Complaint: Vaginal Sxs Time Seen by Provider: 10/31/18 16:14 Medical Evaluation: Allergies Allergy/AdvReac Type Severity Reaction Status Date / Time No Known Allergies Allergy Verified 10/31/18 16:12 Vital Signs Temp Pulse Resp BP Pulse Ox 98.2 F 82 18 101/65 100 10/31/18 16:10 10/31/18 16:10 10/31/18 16:10 10/31/18 16:10 10/31/18 16:10 10/31/18 16:18 Pt c/o: left lower abd pain with spotting , 8 weeks , had u/s done last week by dr alvarado Pt on brief exam: vss, pelvic deferred in triage Pt ordered for: labs, urine and u/s Pt to proceed to the ED Discharge Disposition - Diagnosis Abdominal pain affecting - Referrals - Patient Instructions - Post Discharge Activity
[2018-10-31] MEDS ORDERED: ACETAMINOPHEN 325 MG TABLET (FP) PO ONE (17:26)
--- NOTE | 2018-10-31 17:29 | PDOC ---
History of Present Illness - General Chief Complaint: Vaginal Sxs Stated Complaint: LEFT SIDE PAIN ([id number] ) Time Seen by Provider: 10/31/18 16:14 History Source: Patient - History of Present Illness Timing/Duration: reports: constant Past History - Past Medical History Allergies/Adverse Reactions: Allergies Allergy/AdvReac Type Severity Reaction Status Date / Time No Known Allergies Allergy Verified 10/31/18 16:12 Home Medications: Ambulatory Orders NK [No Known Home Medication] 10/11/18 Asthma: No Cancer: No Cardiac Disorders: No COPD: No Diabetes: No HTN: No Seizures: No Thyroid Disease: No - Surgical History Abdominal Surgery: Yes Appendectomy: Yes - Reproductive History (#): 4 Para: 2 Cervical CA: No Dysfunctional Uterine Bleeding: No Ectopic : No Endometrial CA: No Polycystic Ovaries: No Therapeutic (s) & number: No Tubal Ligation: No Spontaneous : 1 - Immunization History Immunization Up to Date: Yes - Suicide/Smoking/Psychosocial Hx Smoking Status: No Smoking History: Never smoked Have you smoked in the past 12 months: No Number of Cigarettes Smoked Daily: 0 Information on smoking cessation initiated: No Hx Alcohol Use: No Drug/Substance Use Hx: No Substance Use Type: None Hx Substance Use Treatment: No Review of Systems - Review of Systems Constitutional: No: Chills, Fever ABD/GI: Yes: Abdominal cramping. No: Nausea, Vomiting : No: Dysuria, Discharge, Flank Pain, Hematuria Musculoskeletal: No: Back Pain *Physical Exam - Vital Signs Last Vital Signs Temp Pulse Resp BP Pulse Ox 98.2 F 82 18 101/65 100 10/31/18 16:10 10/31/18 16:10 10/31/18 16:10 10/31/18 16:10 10/31/18 16:10 - Physical Exam General Appearance: Yes: Appropriately Dressed. No: Apparent Distress HEENT: positive: Normal Voice Neck: positive: Supple Respiratory/Chest: negative: Respiratory Distress Gastrointestinal/Abdominal: positive: Soft Musculoskeletal: negative: CVA Tenderness Integumentary: positive: Dry, Warm Neurologic: positive: Fully Oriented, Alert, Normal Mood/Affect Moderate Sedation - Procedure Monitoring Vital Signs: Procedure Monitoring Vital Signs Temperature 98.2 F 10/31/18 16:10 Pulse Rate 82 10/31/18 16:10 Respiratory Rate 18 10/31/18 16:10 Blood Pressure 101/65 10/31/18 16:10 O2 Sat by Pulse Oximetry (%) 100 10/31/18 16:10 ED Treatment Course - LABORATORY CBC & Chemistry Diagram: 10/31/18 17:25 10/31/18 17:25 Medical Decision Making - Medical Decision Making 10/31/18 17:26 32-year-old female, [id number], ~ 8 weeks by dates, no care as of yet, here with severe L pelvic pain since last night with trace bright red blood when she wipes, otherwise no vaginal bleeding. Denies dysuria, nausea, vomiting , fever or chills See exam 1st trimester pain Stable and well jessica -tylenol -labs -US 10/31/18 18:47 Pt signed out to ORALIA Garcia at this time pending labs/US *DC/Admit/Observation/Transfer Diagnosis at time of Disposition: Abdominal pain affecting - Referrals Referrals: Adonay Bales MD [Primary Care Provider] - - Patient Instructions - Post Discharge Activity
[2018-10-31 17:41] LABS: BASO % 0.3 % (0-2.0); EOS % 1.7 % (0-4.5); HEMATOCRIT 39.5 % (32.4-45.2); HEMOGLOBIN 13.8 GM/dL (10.7-15.3); LYMPH % 14.8 % (8-40); MCHC 34.9 g/dl (32.0-36.0); MEAN PLT VOLUME 8.1 fl (7.5-11.1); MONO % 8.2 % (3.8-10.2); PLATELET COUNT 286 K/MM3 (134-434); RBC 4.44 M/mm3 (3.60-5.2); RDW 14.4 % (11.6-15.6); WHITE BLOOD COUNT 11.1 K/mm3 (4.0-10.0)
[2018-10-31 17:43] LABS: URINE APPEARANCE SLCLOUDY; URINE BILIRUBIN NEGATIVE (<2.0 mg/dL); URINE COLOR YELLOW; URINE GLUCOSE (UA) NEGATIVE (NEGATIVE); URINE KETONE NEGATIVE (NEGATIVE); URINE LEUK ESTERASE NEGATIVE (NEGATIVE); URINE NITRITE NEGATIVE (NEGATIVE); URINE PROTEIN NEGATIVE (NEGATIVE); URINE UROBILINOGEN NEGATIVE mg/dL (0.2-1.0)
[2018-10-31 18:14] LABS: ALBUMIN 3.6 g/dl (3.4-5.0); ALK PHOS 64 U/L (45-117); ANION GAP 7 MMOL/L (8-16); BILIRUBIN,TOTAL 0.2 mg/dL (0.2-1); BLOOD UREA NITROGEN 10 mg/dL (7-18); CALCIUM 8.4 mg/dL (8.5-10.1); CHLORIDE 106 mmol/L (98-107); CO2 24 mmol/L (21-32); CREATININE 0.6 mg/dL (0.55-1.3); GLUCOSE,RANDOM 87 mg/dL (74-106); SGOT/AST 25 U/L (15-37); SGPT/ALT 42 U/L (13-61); SODIUM 136 mmol/L (136-145); TOT PROT 7.2 g/dl (6.4-8.2)
[2018-10-31] MEDS ORDERED: ACETAMINOPHEN 325 MG TABLET (FP) ONE (19:09)
--- NOTE | 2018-10-31 20:39 | PDOC ---
*Physical Exam - Vital Signs Last Vital Signs Temp Pulse Resp BP Pulse Ox 98.2 F 82 18 101/65 100 10/31/18 16:10 10/31/18 16:10 10/31/18 16:10 10/31/18 16:10 10/31/18 16:10 - Physical Exam Comments: 10/31/18 20:35 GENERAL: Well developed, well nourished. Awake and alert. No acute distress. HEENT: Normocephalic, atraumatic. PERRLA, EOMI. No conjunctival pallor. Sclera are non- icteric. Moist mucous membranes. Oropharynx is clear. NECK: Supple. Full ROM. No JVD. Carotid pulses 2+ and symmetric, without bruits. No thyromegaly. No lymphadenopathy. CARDIOVASCULAR: Regular rate and rhythm. No murmurs, rubs, or gallops. Distal pulses are 2+ and symmetric. PULMONARY: No evidence of respiratory distress. Lungs clear to auscultation bilaterally. No wheezing, rales or rhonchi. ABDOMINAL: Soft. Non-tender. Non-distended. No rebound or guarding. No organomegaly. Normoactive bowel sounds. MUSCULOSKELETAL Normal range of motion at all joints. No bony deformities or tenderness. No CVA tenderness. EXTREMITIES: No cyanosis. No clubbing. No edema. No calf tenderness. SKIN: Warm and dry. Normal capillary refill. No rashes. No jaundice. ED Treatment Course - LABORATORY CBC & Chemistry Diagram: 10/31/18 17:25 10/31/18 17:25 - ADDITIONAL ORDERS Additional order review: Laboratory Results 10/31/18 10/31/18 10/31/18 17:25 17:25 17:25 Sodium Potassium Chloride Carbon Dioxide Anion Gap BUN Creatinine Creat Clearance w eGFR Random Glucose Calcium Total Bilirubin AST ALT Alkaline Phosphatase Total Protein Albumin Beta HCG, Quant 984657.1 Urine Color Yellow Urine Appearance Slcloudy Urine pH 6.0 Ur Specific Flushing 1.021 Urine Protein Negative Urine Glucose (UA) Negative Urine Ketones Negative Urine Blood Negative Urine Nitrite Negative Urine Bilirubin Negative Urine Urobilinogen Negative Ur Leukocyte Esterase Negative Blood Type A POSITIVE Antibody Screen Negative 10/31/18 17:25 Sodium 136 Potassium 4.0 Chloride 106 Carbon Dioxide 24 Anion Gap 7 L BUN 10 Creatinine 0.6 Creat Clearance w eGFR > 60 Random Glucose 87 Calcium 8.4 L Total Bilirubin 0.2 AST 25 ALT 42 Alkaline Phosphatase 64 Total Protein 7.2 Albumin 3.6 Beta HCG, Quant Urine Color Urine Appearance Urine pH Ur Specific Flushing Urine Protein Urine Glucose (UA) Urine Ketones Urine Blood Urine Nitrite Urine Bilirubin Urine Urobilinogen Ur Leukocyte Esterase Blood Type Antibody Screen 10/31/18 17:25 RBC 4.44 MCV 89.0 MCHC 34.9 RDW 14.4 MPV 8.1 Neutrophils % 75.0 Lymphocytes % 14.8 Monocytes % 8.2 Eosinophils % 1.7 Basophils % 0.3 - Medications Given in the ED: ED Medications Discontinued Medications Generic Name Dose Route Start Last Admin Trade Name Isha PRN Reason Stop Dose Admin Acetaminophen 650 mg 10/31/18 17:26 10/31/18 19:09 Tylenol - PO 10/31/18 17:27 650 mg ONCE ONE Administration Progress Note - Progress Note Progress Note: 4 para 2011 This is a 32-year-old female with no medical history presents to the emergency department complaining of left-sided pelvic pain since approximately 2300 hrs. last evening with tinge amount of bright red blood when wiping but denied any fever or chills, nausea/vomiting, headache, dizziness, lightheadedness, neck/ back pain, flank pains, chest pain, shortness of breath, abdominal pains, urinary symptoms: Frequency/urgency/hesitancy, hematuria. Patient denied having any care as of yet. Transvaginal ultrasound this evening: Single viable intrauterine gestation at approximately 8 weeks and 1 day. A 2.9 cm left ovarian cyst is noted which appears mildly increased in size since the previous exam of 10/15/2018. *DC/Admit/Observation/Transfer Diagnosis at time of Disposition: Abdominal pain affecting , Threatened Ovarian cyst Qualifiers: Laterality: left Qualified Code(s): N83.202 - Unspecified ovarian cyst, left side - Discharge Dispostion Disposition: HOME Condition at time of disposition: Stable Decision to Admit order: No - Referrals Referrals: Adonay Bales MD [Primary Care Provider] - Gino Bryant MD [Staff Physician] - - Patient Instructions Printed Discharge Instructions: DI for Threatened Additional Instructions: Increase fluids Pelvic rest Be sure to follow-up with your neon light installer/abrading machine tender this week Your beta hCG today is 662511.1 Your preliminary transvaginal ultrasound shows a single viable intrauterine gestation at approximately 8 weeks and 1 day. There is a 2.9 cm left ovarian cysts which appears increased in size since 10/15 Return back to the emergency department for severe/persistent or worsening symptoms - Post Discharge Activity
== END 2018-10-31 21:07 | disposition home or self-care (01) ==
LOC: JER 16:07
DX: O26.891 Other specified pregnancy related conditions, first trimester (principal); Z3A.08 8 weeks gestation of pregnancy; O20.0 Threatened abortion; R10.9 Unspecified abdominal pain
CPT/HCPCS: 36415; 76817-TC; 80053; 81003; 84702; 85025; 86850; 86900; 86901; 87086; 99282-25

== ENCOUNTER 2018-11-15 08:31 | Emergency (ER) | payer OTHER ==
[2018-11-15 08:36] VITALS: BP 116/70; PULSE 77; TEMP 98.3; BMI 21.6
--- NOTE | 2018-11-15 09:03 | PDOC ---
History of Present Illness <StricklandRupal Marky - Last Filed: 11/15/18 10:17> - General History Source: Patient Exam Limitations: Language Barrier <Traci Martin - Last Filed: 11/15/18 10:42> - General Chief Complaint: Vaginal Bleeding Stated Complaint: VAGANIAL BLEEDING Time Seen by Provider: 11/15/18 08:56 Past History <Rupal Strickland Marky - Last Filed: 11/15/18 10:17> - Past Medical History Asthma: No Cancer: No Cardiac Disorders: No COPD: No Diabetes: No HTN: No Seizures: No Thyroid Disease: No - Surgical History Abdominal Surgery: Yes Appendectomy: Yes - Reproductive History (#): 4 Para: 2 Cervical CA: No Dysfunctional Uterine Bleeding: No Ectopic : No Endometrial CA: No Polycystic Ovaries: No Therapeutic (s) & number: No Tubal Ligation: No Spontaneous : 1 - Immunization History Immunization Up to Date: Yes - Suicide/Smoking/Psychosocial Hx Smoking Status: No Smoking History: Never smoked Have you smoked in the past 12 months: No Number of Cigarettes Smoked Daily: 0 Hx Alcohol Use: No Drug/Substance Use Hx: No Substance Use Type: None Hx Substance Use Treatment: No <Traci Martin - Last Filed: 11/15/18 10:42> - Past Medical History Allergies/Adverse Reactions: Allergies Allergy/AdvReac Type Severity Reaction Status Date / Time No Known Allergies Allergy Verified 11/15/18 08:36 Home Medications: Ambulatory Orders Vits/Iron/Folic Acid [Select-Ob Caplet] 1 each PO DAILY 10/31/18 *Physical Exam - Vital Signs Last Vital Signs Temp Pulse Resp BP Pulse Ox 98.3 F 77 18 116/70 11/15/18 08:33 11/15/18 08:33 11/15/18 08:33 11/15/18 08:33 <Rupal Stricklandtye - Last Filed: 11/15/18 10:17> - Vital Signs Last Vital Signs Temp Pulse Resp BP Pulse Ox 98.3 F 77 18 116/70 11/15/18 08:33 11/15/18 08:33 11/15/18 08:33 11/15/18 08:33 - Physical Exam General Appearance: No: Apparent Distress Respiratory/Chest: positive: Lungs Clear, Normal Breath Sounds. negative: Respiratory Distress Cardiovascular: positive: Regular Rhythm, Regular Rate, S1, S2. negative: Murmur Female Pelvic Exam: positive: vaginal bleeding (small amount of blood in vault, cervical os closed). negative: adnexal tenderness Gastrointestinal/Abdominal: positive: Normal Bowel Sounds, Soft. negative: Tender, Distended, Guarding, Rebound Integumentary: positive: Normal Color Neurologic: positive: Alert, Normal Mood/Affect <Traci Martin - Last Filed: 11/15/18 10:42> Moderate Sedation - Procedure Monitoring Vital Signs: Procedure Monitoring Vital Signs Temperature 98.3 F 11/15/18 08:33 Pulse Rate 77 11/15/18 08:33 Respiratory Rate 18 11/15/18 08:33 Blood Pressure 116/70 11/15/18 08:33 O2 Sat by Pulse Oximetry (%) <Rupal Strickland - Last Filed: 11/15/18 10:17> - Procedure Monitoring Vital Signs: Procedure Monitoring Vital Signs Temperature 98.3 F 11/15/18 08:33 Pulse Rate 77 11/15/18 08:33 Respiratory Rate 18 11/15/18 08:33 Blood Pressure 116/70 11/15/18 08:33 O2 Sat by Pulse Oximetry (%) <Traci Martin - Last Filed: 11/15/18 10:42> ED Treatment Course - LABORATORY CBC & Chemistry Diagram: 11/15/18 09:30 <Rupal Strickland - Last Filed: 11/15/18 10:17> - LABORATORY CBC & Chemistry Diagram: 11/15/18 09:30 <Traci Martin - Last Filed: 11/15/18 10:42> Medical Decision Making - Medical Decision Making The patient was seen and evaluated in conjunction with midlevel provider under my direct supervision, ancillary studies were reviewed. I agree with the plan as outlined by ORALIA Martin. HPI, workup/dispo as outlined. in summary, 33 YOF ~11 wks presenting with vaginal bleeding. last visit 10/31/18 with AP and VB, ultrasound with live IUP and ovarian cyst. vitals wnl, normotension today, plan for CBC and beta recheck to trend. repeat pelvic US, eval for vs demise. CBC wnl, no anemia beta appropriate OB US with live IUP at 10 w 4d. ovarian cyst noted on left; small fluid in cul de sac, no subchorionic hematoma/bleed. 11/15/18 10:17 <StricklandRupal Marky - Last Filed: 11/15/18 10:17> - Medical Decision Making 33 y/o F around 11 weeks presents with vaginal bleeding from today at 7:30 AM, initially heavy, but now it has decreased. Patient was seen in ED 2 weeks ago for pelvic pain and scant bleeding. At that time, ultrasound confirmed IUP at 8 weeks. Denies fever, n/v, abd pain, urinary complaints. Likely threatened Will get repeat Bhcg and check ultrasound Patient was Rh positive during ED visit 2 weeks ago 11/15/18 09:03 Bhcg uptrending CBC stable Pelvic ultrasound reaffirms IUP at 10 weeks 4 days Stable for dc 11/15/18 10:39 <Traci Martin - Last Filed: 11/15/18 10:42> *DC/Admit/Observation/Transfer <Rupal Strickland - Last Filed: 11/15/18 10:17> - Discharge Dispostion Decision to Admit order: No <Traci Martin - Last Filed: 11/15/18 10:42> Diagnosis at time of Disposition: Threatened - Discharge Dispostion Disposition: HOME Condition at time of disposition: Stable - Referrals Referrals: Lisa Simms MD [Primary Care Provider] - 2 Days - Patient Instructions Printed Discharge Instructions: DI for Threatened Additional Instructions: Thank you for choosing [facility]. It was a pleasure taking care of you. Recommend pelvic rest Avoid heavy work and intercourse Continue follow-up with your OB/GYM Return to the Emergency Department if your symptoms worsen or persist, you have fever, shortness of breath, chest pain, severe abdominal pain, vomiting, heavy vaginal bleeding or other concerning symptoms. Ravi por elegir el [facility]. Fue un placer cuidar de ti. Recomienda reposo plvico Evite el trabajo pesado y las relaciones sexuales Continuar el seguimiento con gutierrez OB / GYM Regrese al Departamento de Emergencias si elizabet sntomas empeoran o persisten, tiene fiebre, falta de aliento, dolor en el pecho, dolor abdominal intenso, vmitos, sangrado vaginal intenso u otros sntomas relacionados. Print Language: CYMRAES - Post Discharge Activity
[2018-11-15 09:53] LABS: BASO % 0.3 % (0-2.0); EOS % 2.5 % (0-4.5); HEMOGLOBIN 14.4 GM/dL (10.7-15.3); LYMPH % 16.4 % (8-40); MCH 31.6 pg (25.7-33.7); MCHC 35.2 g/dl (32.0-36.0); MEAN CELL VOLUME 89.7 fl (80-96); MEAN PLT VOLUME 8.3 fl (7.5-11.1); MONO % 6.2 % (3.8-10.2); NEUT % 74.6 % (42.8-82.8); PLATELET COUNT 230 K/MM3 (134-434); RBC 4.57 M/mm3 (3.60-5.2); RDW 14.1 % (11.6-15.6); WHITE BLOOD COUNT 9.7 K/mm3 (4.0-10.0)
== END 2018-11-15 10:45 | disposition home or self-care (01) ==
LOC: JER 08:31
DX: O26.891 Other specified pregnancy related conditions, first trimester (principal); O20.0 Threatened abortion; O34.81 Maternal care for other abnormalities of pelvic organs, first trimester; N83.292 Other ovarian cyst, left side; Z3A.11 11 weeks gestation of pregnancy
CPT/HCPCS: 36415; 76801-TC; 84702; 85025; 99281-25

== ENCOUNTER 2018-11-23 19:30 | Emergency (ER) | payer OTHER ==
[2018-11-23 19:36] VITALS: BP 110/77; PULSE 98; TEMP 98.5; BMI 21.9
[2018-11-23] MEDS ORDERED: ACETAMINOPHEN 325 MG TABLET (FP) PO ONE (20:04)
[2018-11-23] MEDS ORDERED: ALBUTEROL SO4 2.5/IPRATROPIUM 0.5 INH SOL 3 ML VIAL.NEB. NEB ONE ×2 (20:04→20:07)
[2018-11-23] MEDS ORDERED: ACETAMINOPHEN 325 MG TABLET (FP) ONE (20:07)
--- NOTE | 2018-11-23 20:21 | PDOC ---
History of Present Illness - General Chief Complaint: Cold Symptoms Stated Complaint: HEADACHE/BODYACHES Time Seen by Provider: 11/23/18 19:55 History Source: Patient Exam Limitations: No Limitations - History of Present Illness Initial Comments: 11/23/18 20:18 Patient is a 33-year-old female currently 12 weeks , who presents to the ER with 2 days of body aches, chills, subjective fever, and cough. Patient states her whole body hurts. She has not taken any medication for her symptoms because she is . Patient denies vaginal bleeding, abdominal pain at this time. Denies earache, sore throat, difficulty breathing, nausea, vomiting and diarrhea. Pt did receive a flu shot this year Past History - Travel Traveled outside of the country in the last 30 days: No Close contact w/someone who was outside of country & ill: No - Past Medical History Allergies/Adverse Reactions: Allergies Allergy/AdvReac Type Severity Reaction Status Date / Time No Known Allergies Allergy Verified 11/15/18 08:36 Home Medications: Ambulatory Orders Vits/Iron/Folic Acid [Select-Ob Caplet] 1 each PO DAILY 10/31/18 Asthma: No Cancer: No Cardiac Disorders: No COPD: No CHF: No DVT: No Diabetes: No HTN: No Seizures: No Thyroid Disease: No - Surgical History Abdominal Surgery: Yes Appendectomy: Yes Gastric Stapling: No Lung Surgery: No - Reproductive History (#): 4 Para: 2 Cervical CA: No Dysfunctional Uterine Bleeding: No Ectopic : No Endometrial CA: No Polycystic Ovaries: No Therapeutic (s) & number: No Tubal Ligation: No Spontaneous : 1 - Immunization History Immunization Up to Date: Yes - Suicide/Smoking/Psychosocial Hx Smoking Status: No Smoking History: Never smoked Have you smoked in the past 12 months: No Number of Cigarettes Smoked Daily: 0 Information on smoking cessation initiated: No Hx Alcohol Use: No Drug/Substance Use Hx: No Substance Use Type: None Hx Substance Use Treatment: No Review of Systems - Review of Systems Able to Perform ROS?: Yes Comments:: 11/23/18 20:17 CONSTITUTIONAL: Present: Fever, chills, body aches Absent: diaphoresis, generalized weakness, malaise, loss of appetite HEENT: Present: rhinorrhea, nasal congestion, throat pain. Absent: difficulty swallowing, mouth swelling, ear pain, eye pain, visual Changes CARDIOVASCULAR: Absent: chest pain, loss of consciousness, palpitations, irregular heart rate, peripheral edema RESPIRATORY: Present: Cough Absent: shortness of breath, dyspnea with exertion, orthopnea, wheezing, stridor, hemoptysis GASTROINTESTINAL: Absent: abdominal pain, abdominal distension, nausea, vomiting, diarrhea, constipation, melena, hematochezia SKIN: Absent: rash, itching, pallor NEUROLOGIC: Present: headache Absent: focal weakness or paresthesias, dizziness, unsteady gait, seizure, mental status changes, bladder or bowel incontinence Is the patient limited Khmer proficient: No *Physical Exam - Vital Signs Last Vital Signs Temp Pulse Resp BP Pulse Ox 98.5 F 98 H 20 110/77 99 11/23/18 19:34 11/23/18 19:34 11/23/18 19:34 11/23/18 19:34 11/23/18 19:34 - Physical Exam Comments: 11/23/18 20:18 GENERAL: Well developed, well nourished. Awake and alert. No acute distress. HEENT: Normocephalic, atraumatic. PERRLA, EOMI. No conjunctival pallor. Sclera are non- icteric. Moist mucous membranes. Oropharynx is clear. NECK: Supple. Full ROM. No JVD. Carotid pulses 2+ and symmetric, without bruits. No thyromegaly. No lymphadenopathy. CARDIOVASCULAR: Regular rate and rhythm. No murmurs, rubs, or gallops. Distal pulses are 2+ and symmetric. PULMONARY: No evidence of respiratory distress. Lungs clear to auscultation bilaterally. No wheezing, rales or rhonchi. ABDOMINAL: Soft. Non-tender. Non-distended. No rebound or guarding. No organomegaly. Normoactive bowel sounds. MUSCULOSKELETAL Normal range of motion at all joints. No bony deformities or tenderness. No CVA tenderness. EXTREMITIES: No cyanosis. No clubbing. No edema. No calf tenderness. SKIN: Warm and dry. Normal capillary refill. No rashes. No jaundice. NEUROLOGICAL: Alert, awake, appropriate. Cranial nerves 2-12 intact. No deficits to light touch and temperature in face, upper extremities and lower extremities. No motor deficits in the in face, upper extremities and lower extremities. Normoreflexic in the upper and lower extremities. Normal speech. Toes are down- going bilaterally. Gait is normal without ataxia. PSYCHIATRIC: Cooperative. Good eye contact. Appropriate mood and affect. Moderate Sedation - Procedure Monitoring Vital Signs: Procedure Monitoring Vital Signs Temperature 98.5 F 11/23/18 19:34 Pulse Rate 98 H 11/23/18 19:34 Respiratory Rate 20 11/23/18 19:34 Blood Pressure 110/77 11/23/18 19:34 O2 Sat by Pulse Oximetry (%) 99 11/23/18 19:34 ED Treatment Course - Medications Given in the ED: ED Medications Discontinued Medications Generic Name Dose Route Start Last Admin Trade Name Isha PRN Reason Stop Dose Admin Acetaminophen 650 mg 11/23/18 20:04 11/23/18 20:10 Tylenol - PO 11/23/18 20:05 650 mg ONCE ONE Administration Albuterol/Ipratropium 1 amp 11/23/18 20:04 11/23/18 20:10 Duoneb - NEB 11/23/18 20:05 1 amp ONCE ONE Administration Medical Decision Making - Medical Decision Making 11/23/18 22:25 flu negative Strep negative Urine without evidence of infection Bedside US shows a HR of 163, good fluid DC home; most likely viral illness. Pt to f/u with ob tomorrow I discussed the physical exam findings, ancillary test results and final diagnoses with the patient. I answered all of the patient's questions. The patient was satisfied with the care received and felt comfortable with the discharge plan and treatment plan. The Patient agrees to follow up with the primary care physician/specialist within 24-72 hours. Return precautions were given. *DC/Admit/Observation/Transfer Diagnosis at time of Disposition: URI (upper respiratory infection) Qualifiers: URI type: unspecified viral URI Qualified Code(s): J06.9 - Acute upper respiratory infection, unspecified - Discharge Dispostion Disposition: HOME Condition at time of disposition: Stable Decision to Admit order: No - Referrals Referrals: Tien Mccarty MD [Staff Physician] - - Patient Instructions Printed Discharge Instructions: DI for Viral Upper Respiratory Infection -- Adult Additional Instructions: You have an upper respiratory infection, or the common cold. Your strep, flu and urine testing was negative today. Please take Tylenol 650mg every 4 hours as needed for pain not to exceed 3000 mg a day. Drink plenty of fluids. Warm tea may help your symptoms as well. Please follow up with your OB tomorrow. Return to the emergency department if you have difficulty breathing, shortness of breath, worsening pain, nausea, vomiting or if you have any changes in your symptoms. Print Language: AMHARIC - Post Discharge Activity
[2018-11-23 22:19] LABS: URINE APPEARANCE SLCLOUDY; URINE BILIRUBIN NEGATIVE (<2.0 mg/dL); URINE COLOR DKYELLOW; URINE GLUCOSE (UA) 1+ (NEGATIVE); URINE KETONE 2+ (NEGATIVE); URINE LEUK ESTERASE NEGATIVE (NEGATIVE); URINE NITRITE NEGATIVE (NEGATIVE); URINE PROTEIN NEGATIVE (NEGATIVE); URINE UROBILINOGEN NEGATIVE mg/dL (0.2-1.0)
== END 2018-11-23 22:32 | disposition home or self-care (01) ==
LOC: JERFT 19:30
PROC: 3E0F7GC Introduction of Other Therapeutic Substance into Respiratory Tract, Via Natural or Artificial Opening (ICD-10-PCS; principal; 2018-11-23)
DX: O99.89 Other specified diseases and conditions complicating pregnancy, childbirth and the puerperium (principal); J06.9 Acute upper respiratory infection, unspecified; Z3A.12 12 weeks gestation of pregnancy
CPT/HCPCS: 81003; 87070; 87086; 87804; 87880; 94640; 99281-25

== ENCOUNTER 2018-11-27 10:48 | Emergency (ER) | payer OTHER ==
--- NOTE | 2018-11-27 10:58 | PDOC ---
History of Present Illness - General Chief Complaint: SIRS, Suspected/Possible Stated Complaint: FEVER/ - History of Present Illness Initial Comments: 11/27/18 10:57 33 yo female with PMH presents with a few days of productive cough, subjective fever and chills. She states she was seen a few days ago and then was then seen today in the clinic at her OB and sent for further evaluation. She states she is 18 weeks . She endorses some pain in her chest upon inspiration and associated with her cough. Past History - Past Medical History Allergies/Adverse Reactions: Allergies Allergy/AdvReac Type Severity Reaction Status Date / Time No Known Allergies Allergy Verified 11/27/18 12:23 Home Medications: Ambulatory Orders Vits/Iron/Folic Acid [Select-Ob Chewable Caplet] 1 each PO DAILY Amox-Tr/K Cl [Augmentin - 875Mg Tablet] 1 tab PO BID #13 tablet 11/27/18 Asthma: No Cancer: No Cardiac Disorders: No COPD: No CHF: No DVT: No Diabetes: No HTN: No Seizures: No Thyroid Disease: No - Surgical History Abdominal Surgery: Yes Appendectomy: Yes Gastric Stapling: No Lung Surgery: No - Reproductive History (#): 4 Para: 2 Cervical CA: No Dysfunctional Uterine Bleeding: No Ectopic : No Endometrial CA: No Polycystic Ovaries: No Therapeutic (s) & number: No Tubal Ligation: No Spontaneous : 1 - Immunization History Immunization Up to Date: Yes - Suicide/Smoking/Psychosocial Hx Smoking Status: No Smoking History: Never smoked Have you smoked in the past 12 months: No Number of Cigarettes Smoked Daily: 0 Hx Alcohol Use: No Drug/Substance Use Hx: No Substance Use Type: None Hx Substance Use Treatment: No Review of Systems - Review of Systems Able to Perform ROS?: Yes Constitutional: Yes: Chills, Fever Respiratory: Yes: Cough, Shortness of Breath Cardiac (ROS): Yes: Chest Tightness *Physical Exam - Physical Exam Comments: 11/27/18 10:58 GEN: A&O, no acute distress HEENT: Moist mucus membranes, no exudate or erythema NECK: supple, no lymphadenopathy HEART: Tachycardic, regular rhythm, no murmur noted LUNGS: Rhonchi and decreased inspiration in the LLL ABDOMEN: Soft, nontender, consistent with states gestational age EXTREMITIES: no calf tenderness ED Treatment Course - LABORATORY CBC & Chemistry Diagram: 11/27/18 11:35 11/27/18 11:35 Medical Decision Making - Medical Decision Making 11/27/18 11:30 33 yo female 18 weeks presents with cough, fever and chills for a few days in addition to some myalgias. Unable to perform CXR due to , however clinically very likely pneumonia based on history and exam. Will give 1L LR, DuoNebs for symptomatic assistance, and Augmentin 875 mg PO for 7 days BID with first dose given here. Will instruct to drink plenty of fluids, rest, and follow up with primary care physician or return to the emergency department if not improving in 2-3 days. 11/27/18 13:17 Pt complaining of nausea following first dose of Augmentin. Will give IV reglan for now, send PO reglan to pharmacy, and recommend pt take augmentin only after eating upon D/C. Pt does also endorse some dark coffee ground colored urine. Will order UA 11/27/18 14:43 UA with 3+ Glucose, 2+ Blood, 2+ Ketones, <1 RBC. will give additional 1L fluid bolus, add on CK to labs already drawn. Story not consistent with rhabdo however will verify with CK prior to discharge. *DC/Admit/Observation/Transfer Diagnosis at time of Disposition: Community acquired bacterial pneumonia - Discharge Dispostion Disposition: HOME Condition at time of disposition: Stable Decision to Admit order: No - Prescriptions Prescriptions: Amox-Tr/K Cl [Augmentin - 875Mg Tablet] 1 tab PO BID #13 tablet - Referrals Referrals: Lisa Simms MD [Primary Care Provider] - - Patient Instructions Printed Discharge Instructions: DI for Pneumonia -- Adult, DI for Fever ( Symptom) -- Adult Additional Instructions: You were seen in the Emergency Department for a cough, fevers, and chills. You likely have a pneumonia at this time based on your story and clinical presentation and exam. You were given a Liter of fluids, a breathing treatment, and a dose of Augmentin (an antibiotic). You should take one dose of the antibiotic tonight, and then for the next 6 days you should take one tablet in the morning and one at night. You should drink plenty of fluids as well. You are also being sent Reglan to your pharmacy which you can take if you are nauseous. It is important that you take the antibiotic with food in order to prevent further nausea and vomiting. If your symptoms worsen or you are not feeling any better in 3-4 days, you should be seen by your primary doctor or return to the emergency department. - Post Discharge Activity
--- NOTE | 2018-11-27 11:06 | PDOC ---
Attending Attestation - HPI HPI: 11/27/18 11:47 The patient is a 33 year old female, A1, with a significant past medical history of ovarian cyst and fibroids, who presents to the emergency department with cough and chest tightness for about 3 days. She reports chest tightness is exacerbated with deep inspiration. She states she was seen at the clinic and referred to the ED. She states she was influenza and strep negative during an ED visit 4 days ago. The patient denies shortness of breath, headache and dizziness. The patient denies fever, chills, nausea, vomit, diarrhea and constipation. The patient denies dysuria, frequency, urgency and hematuria. Allergies: NKDA Past Surgical History: Appendectomy, C-Sections X2 Social History: Non smoker. No ETOH or recreational drug use. PCP: Dr. Del Real <Catalina Marshall - Last Filed: 11/27/18 11:47> - Resident Resident Name: Sharath Landeros - ED Attending Attestation I have performed the following: I have examined & evaluated the patient, The case was reviewed & discussed with the resident, I agree w/resident's findings & plan, Exceptions are as noted - Physicial Exam PE: 11/27/18 12:57 GENERAL: The patient is in no acute distress. HEAD: Normal with no signs of trauma. EYES: PERRLA, EOMI, sclera anicteric, conjunctiva clear. ENT: Ears normal, nares patent, oropharynx clear without exudates. Moist mucous membranes. NECK: Normal range of motion, supple without lymphadenopathy, JVD, or masses. LUNGS: Breath sounds equal, clear to auscultation bilaterally. No wheezes, and no crackles. HEART:Regular rate and rhythm, normal S1 and S2 without murmur, rub or gallop. ABDOMEN: Soft, nontender, normoactive bowel sounds. No guarding, no rebound. No masses palpable. EXTREMITIES: Normal range of motion, no edema. No clubbing or cyanosis. No erythema, or tenderness. NEUROLOGICAL: Cranial nerves II through XII grossly intact. Normal speech. No focal neurological deficits. MUSCULOSKELETAL: Back non-tender to palpation, no CVA tenderness SKIN: Warm, Dry, normal turgor, no rashes or lesions noted. - Medical Decision Making 11/27/18 12:58 Laboratory Tests 11/27/18 11/27/18 11:35 11:35 WBC 18.4 H Hgb 13.6 Hct 38.5 Plt Count 250 Sodium 134 L Potassium 3.2 L Chloride 103 Carbon Dioxide 20 L BUN 5 L Creatinine 0.4 L Random Glucose 75 11/27/18 13:47 Upon re assessment: Pt given Augmentin --> nausea and an episode of vomiting (+) cough No wheezing noted on examination UA pending Laboratory Tests 11/27/18 13:50 Urine Nitrite Negative Ur Leukocyte Esterase Negative Urine WBC (Auto) 3 Urine RBC (Auto) <1 <Jazmyn Esquivel - Last Filed: 11/28/18 20:25> Attestations - Attestations 11/27/18 11:47 Documentation prepared by Catalina Marshall, acting as chief medical officer for Jazmyn Esquivel MD <Catalina Marshall - Last Filed: 11/27/18 11:47>
[2018-11-27] MEDS ORDERED: AMOX TR/POT CLAV 875MG/125MG TABLETS (FP) PO ONE (11:10)
[2018-11-27] MEDS ORDERED: LACTATED RINGERS SOLUTION 1000 ML INFUS.BAG IV ONE ×2 (11:11→14:40)
[2018-11-27 11:12] VITALS: BMI 20.6
[2018-11-27] MEDS ORDERED: ALBUTEROL SO4 2.5/IPRATROPIUM 0.5 INH SOL 3 ML VIAL.NEB. NEB ONE ×4 (11:12→12:36)
[2018-11-27] MEDS ORDERED: AMOX TR/POT CLAV 875MG/125MG TABLETS (FP) ONE (11:26)
[2018-11-27 12:09] LABS: BASO % 0.2 % (0-2.0); EOS % 0.1 % (0-4.5); HEMATOCRIT 38.5 % (32.4-45.2); HEMOGLOBIN 13.6 GM/dL (10.7-15.3); LYMPH % 8.7 % (8-40); MCH 31.3 pg (25.7-33.7); MCHC 35.3 g/dl (32.0-36.0); MEAN CELL VOLUME 88.8 fl (80-96); MEAN PLT VOLUME 8.2 fl (7.5-11.1); MONO % 7.6 % (3.8-10.2); NEUT % 83.4 % (42.8-82.8); PLATELET COUNT 250 K/MM3 (134-434); RBC 4.33 M/mm3 (3.60-5.2); RDW 14.1 % (11.6-15.6); WHITE BLOOD COUNT 18.4 K/mm3 (4.0-10.0)
[2018-11-27 12:20] LABS: ANION GAP 10 MMOL/L (8-16); BLOOD UREA NITROGEN 5 mg/dL (7-18); CALCIUM 8.5 mg/dL (8.5-10.1); CHLORIDE 103 mmol/L (98-107); CO2 20 mmol/L (21-32); CREATININE 0.4 mg/dL (0.55-1.3); GLUCOSE,RANDOM 75 mg/dL (74-106); POTASSIUM 3.2 mmol/L (3.5-5.1); SODIUM 134 mmol/L (136-145)
[2018-11-27] MEDS ORDERED: POTASSIUM CHLORIDE TABS 20 MEQ TABLET.ER (FP) PO ONE ×2 (12:23→12:36)
[2018-11-27] MEDS ORDERED: METOCLOPRAMIDE HCL INJECTION 10 MG/2 ML VIAL IVPUSH ONE (12:57)
[2018-11-27] MEDS ORDERED: METOCLOPRAMIDE HCL INJECTION 10 MG/2 ML VIAL ONE (12:59)
[2018-11-27 14:07] LABS: URINE APPEARANCE CLEAR; URINE BILIRUBIN NEGATIVE (<2.0 mg/dL); URINE COLOR LTYELLOW; URINE GLUCOSE (UA) 3+ (NEGATIVE); URINE KETONE 2+ (NEGATIVE); URINE LEUK ESTERASE NEGATIVE (NEGATIVE); URINE NITRITE NEGATIVE (NEGATIVE); URINE PROTEIN NEGATIVE (NEGATIVE); URINE UROBILINOGEN NEGATIVE mg/dL (0.2-1.0)
[2018-11-27 14:11] LABS: EPI CELLS RARE /HPF (FEW); URINE BACTERIA RARE /hpf (NONE SEEN); URINE MUCUS RARE
[2018-11-27 14:42] VITALS: TEMP 97.8
[2018-11-27 16:29] VITALS: BP 97/48; PULSE 83
== END 2018-11-27 16:29 | disposition home or self-care (01) ==
LOC: JER 10:48
PROC: 3E0F7GC Introduction of Other Therapeutic Substance into Respiratory Tract, Via Natural or Artificial Opening (ICD-10-PCS; principal; 2018-11-27)
PROC: 3E0F7GC Introduction of Other Therapeutic Substance into Respiratory Tract, Via Natural or Artificial Opening (ICD-10-PCS; 2018-11-27)
PROC: 3E033GC Introduction of Other Therapeutic Substance into Peripheral Vein, Percutaneous Approach (ICD-10-PCS; 2018-11-27)
DX: O26.892 Other specified pregnancy related conditions, second trimester (principal); O99.512 Diseases of the respiratory system complicating pregnancy, second trimester; J15.8 Pneumonia due to other specified bacteria; Z3A.18 18 weeks gestation of pregnancy
CPT/HCPCS: 36415; 80048; 81003; 81015; 82550; 84484; 85025; 87086; 99282-25

== ENCOUNTER 2019-06-08 08:50 | Inpatient (IN) | payer OTHER ==
[2019-06-08] MEDS ORDERED: CITRIC ACID/SODIUM CITRATE 30 ML UNIT-DOSE CUP PO ONE (09:00)
[2019-06-08] MEDS ORDERED: ELECTROLYTE-148 SOLN 1,000 ML IV ONE (09:00)
[2019-06-08] MEDS: ELECTROLYTE-148 SOLN 1,000 ML IV SCH (09:30)
[2019-06-08 09:36] VITALS: BMI 28.3
--- NOTE | 2019-06-08 10:30 | HP ---
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 Weeks Gestation by Dates: 39.2 ...EDC by Dates: 06/13/19 ...EDC by Sono: 06/14/19 - Past Surgical History Past Surgical History: Yes: Hx Myomectomy: No Hx Transabdominal Cerclage: No - Smoking History Smoking history: Never smoked Have you smoked in the past 12 months: No Aproximately how many cigarettes per day: 0 - Alcohol/Substance Use Hx Alcohol Use: No - Social History Usual Living Arrangement: Yes: With Spouse Home Medications - Allergies Allergies/Adverse Reactions: Allergies Allergy/AdvReac Type Severity Reaction Status Date / Time No Known Allergies Allergy Verified 06/08/19 09:18 - Home Medications Home Medications: Ambulatory Orders Vits/Iron/Folic Acid [Select-Ob Chewable Caplet] 1 each PO DAILY Azithromycin 250 mg PO DAILY 06/08/19 Review of Systems - Review of Systems Constitutional: reports: No Symptoms Eyes: reports: No Symptoms HENT: reports: No Symptoms Neck: reports: No Symptoms Cardiovascular: reports: No Symptoms Respiratory: reports: No Symptoms Gastrointestinal: reports: No Symptoms Genitourinary: reports: No Symptoms Breasts: reports: No Symptoms Reported Musculoskeletal: reports: No Symptoms Integumentary: reports: No Symptoms Neurological: reports: No Symptoms Endocrine: reports: No Symptoms Hematology/Lymphatic: reports: No Symptoms Psychiatric: reports: No Symptoms Physical Exam - Maternity Vital Signs: Vital Signs Temperature 98.0 F 06/08/19 09:27 Pulse Rate 68 06/08/19 09:27 Respiratory Rate 20 06/08/19 09:27 Blood Pressure 111/69 06/08/19 09:27 O2 Sat by Pulse Oximetry (%) Constitutional: Yes: Well Nourished, No Distress, Calm Eyes: Yes: WNL HENT: Yes: WNL Neck: Yes: WNL Cardiovascular: Yes: Regular Rate and Rhythm Lungs: Clear to auscultation Breast(s): Yes: WNL - Abdominal Exam/OB Fundal Height: 40 Number of Fetuses: Single Presentation: Vertex Contractions: No Category: I - Vaginal Exam/OB Vaginal Bleediing: No Speculum Exam: No Dilatation (cm): 0 Effacement (%): 25 Amniotic Membrane Status: Intact Nitrazine Test: Negative Presentation: Vertex/Position Station: -2 - Physical Exam Edema: LUE: Trace, RUE: Trace, LLE: 1+, RLE: 1+ Integumentary: Yes: WNL ...Motor Strength: WNL Psychiatric: Yes: WNL Hemorrhage Risk Assessment - Risk Factors Medium Risk Factors: Yes: Prior , uterine surgery,or multiple laparotomies Risk Score: 1 Risk Level: Medium Risk Imaging - Results Ultrasound: Report Reviewed Problem List - Problems (1) Normal Code(s): Z34.90 - ENCNTR FOR SUPRVSN OF NORMAL , UNSP, UNSP TRIMESTER Assessment/Plan IUP at term, 39 wks. Previous c/section x 2. Desire for sterilization. Repeat c/section. Pfannenstiehl incision. Nicolas. salpingectomy for sterilization. All aspects of planned surgery fully discussed with pt. Risks, poss. complications explained. Patient understands and consents.
[2019-06-08] MEDS ORDERED: morphine SULFATE/PF 0.5 MG/ML (2cc Syringe - QUVA) ONE (10:35)
[2019-06-08] MEDS ORDERED: ONDANSETRON 4 MG/2 ML VIAL IVPUSH PRN ×2 (10:39→12:06)
[2019-06-08] MEDS ORDERED: morphine SULFATE/PF 0.5 MG/ML (2cc Syringe - QUVA) EP ONE (10:39)
[2019-06-08] MEDS ORDERED: ceFAZolin SODIUM 1 GM VIAL ONE (10:41)
[2019-06-08] MEDS ORDERED: OXYTOCIN 10 UNITS/ML VIAL ONE (11:03)
[2019-06-08] MEDS ORDERED: OXYTOCIN 20 UNITS in 0.9% NS 20 UNIT/1,000 ML INFUS.BAG IV ONE (11:24)
[2019-06-08] MEDS ORDERED: DOCUSATE SODIUM 100 MG CAPSULE (FP) PO PRN (12:06)
[2019-06-08] MEDS ORDERED: IBUPROFEN 800 MG/8 ML IJ IVPB PRN (12:06)
[2019-06-08] MEDS ORDERED: BISACODYL 5 MG TABLET.DR (FP) PO PRN (12:06)
[2019-06-08] MEDS ORDERED: KETOROLAC TROMETHAMINE 30 MG/1 ML VIAL IVPUSH PRN (12:06)
--- NOTE | 2019-06-08 12:19 | OP ---
Operative Note - Note: Operative Date: 06/08/19 Pre-Operative Diagnosis: term ,. elective sterilization Operation: repeat . bilateral salpingectomy Post-Operative Diagnosis: Same as Pre-op Surgeon: Adonay Bales Senior Visual Designer: Maria E Otto Anesthesiologist/APPIAN BPM DEVELOPER: Humble Evans Anesthesia: Epidural Estimated Blood Loss (mls): 500 Operative Report Dictated: Yes
--- NOTE | 2019-06-08 12:19 | SURG ---
Surgery Subassembly Supervisor Note Subassembly Supervisor: Maria E Otto PA-C Date of Service: 06/08/19 Diagnosis: Term ,. elective sterilization Procedure: repeat . bilateral salpingectomy I was present for the entirety of the operative procedure. For further detail, please refer to operative report. Visit type - Case Type Case Type: Scheduled - Emergency Emergency Visit: No - New patient This patient is new to me today: Yes Date on this admission: 06/08/19
[2019-06-08] MEDS: ACETAMINOPHEN 1000 MG/100 ML VIAL (NON FORMULARY) IVPB SCH ×3 (12:45→23:57)
[2019-06-08] MEDS: CEFAZOLIN 1 GM/D5W 1 GM/50 ML BAG IVPB SCH (17:58)
--- NOTE | 2019-06-08 18:03 | OP ---
DATE OF OPERATION: DATE OF DICTATION: 06/08/2019 PREOPERATIVE DIAGNOSES: 1. Intrauterine at term, 39 weeks. 2. Previous section x2. 3. Desire for permanent sterilization. POSTOPERATIVE DIAGNOSES: 1. Intrauterine at term, 39 weeks. 2. Previous section x2. 3. Desire for permanent sterilization. PROCEDURES: 1. Repeat low segment transverse section. 2. Bilateral salpingectomy for the purpose of sterilization. SURGEON: Evaristo Car MD [employer]IME PLANT OPERATOR HELPER: ORALIA Medrano ANESTHESIOLOGIST: Humble Evans MD ANESTHESIA: Regional. DESCRIPTION OF PROCEDURE: Under excellent block in the dorsal supine position with left lateral tilt, patient was prepped and draped for the surgery. Abdomen was entered through Pfannenstiel incision. Decision has been made not to enter through old, poorly healed, vertical incision scar. Subcutaneous tissue and fascia were opened transversely. The recti muscles were dissected off the fascia and in the midline. Peritoneum was entered sharply in a safe distance from the bladder, and incision was extended vertically. Term uterus with normal adnexa was noted. Lower uterine segment was bulging. No pathology noted. Bladder flap was incised and bluntly dissected off the lower uterine segment. Hysterotomy was placed transversely and extended laterally with bandage scissors. Clear amniotic fluid was noted. Female live was delivered, cried, and breathed spontaneously. Cord was divided with delay. Baby was handed to the neonatology team. Placenta was removed, and uterine cavity was cleaned. Internal os was dilated. Hysterotomy was then closed with single layer continuous Biosyn 0 suture. Additional mattress Biosyn suture was used on the 1 bleeding area, which secured it. Bilateral salpingectomy was then carried out. Right-sided mesosalpinx was divided using LigaSure device. Tube was detached from the uterus and sent as a specimen. Same was repeated on the left side. The area was secured, and there was no bleeding. Uterus was placed anatomically in the abdomen, and lavage was carried out. Hemostasis was excellent. Count was reported as correct. Abdomen was closed in layers. Peritoneum was closed with Biosyn 2-0 running suture. Fascia was closed with continuous Vicryl 1 suture. Subcutaneous tissue was approximated with Biosyn 2-0 interrupted sutures, and skin was closed in a subcuticular fashion using Biosyn 3-0 on Abdiel needle. Steri-Strips were applied. Dressing was held with binder. Urine was clear in the Gifford catheter bag. Baby's Apgars were 9 and 9. Weight was 9 pounds 5 ounces. Estimated blood loss was 500 mL. Patient tolerated the procedure very well. She was transferred to recovery room comfortable and stable. EVARISTO CAR MD [id number]
[2019-06-09] MEDS: CEFAZOLIN 1 GM/D5W 1 GM/50 ML BAG IVPB SCH (01:54)
[2019-06-09] MEDS: ACETAMINOPHEN 1000 MG/100 ML VIAL (NON FORMULARY) IVPB SCH (06:27)
[2019-06-09 07:56] LABS: HEMATOCRIT 34.9 % (32.4-45.2); HEMOGLOBIN 11.8 GM/dL (10.7-15.3); MCH 30.2 pg (25.7-33.7); MCHC 33.7 g/dl (32.0-36.0); MEAN CELL VOLUME 89.5 fl (80-96); MEAN PLT VOLUME 8.9 fl (7.5-11.1); PLATELET COUNT 167 K/MM3 (134-434); RBC 3.89 M/mm3 (3.60-5.2); RDW 15.8 % (11.6-15.6); WHITE BLOOD COUNT 11.3 K/mm3 (4.0-10.0)
--- NOTE | 2019-06-09 08:22 | PN ---
Progress Note (short form) - Note Progress Note: POD 1, s/p repeat , bilateral salpingectomy Pt seen and examined. at bedside. Reports she is feeling well. Has some pain at incision site, managed with pain regimen. Has not been oob yet. Had 1 episode of emesis yesterday after drinking fluids. Has not had any food yet. Gifford removed 1 hour ago. No flatus yet. Denies cp/sob, n/v/d. Vital Signs Temp 98.9 F 06/09/19 05:53 Pulse 70 06/09/19 05:53 Resp 18 06/09/19 05:53 BP 95/52 L 06/09/19 05:53 Pulse Ox 99 06/08/19 13:00 Intake & Output 06/08/19 06/08/19 06/09/19 11:59 23:59 11:59 Intake Total 2325 1462 Output Total 800 750 Balance 1525 712 Weight 145 lb Intake: IV 2175 1212 Plasma-Lyte 148 - 1,000 500 ml @ 1000 mls/hr IV ONCE ONE Rx#:[id number] Plasma-Lyte 148 - 1,000 500 ml @ 125 mls/hr IV ASDIR ANTHONY Rx#:[id number] ns+20 units pitocin 1175 1212 IVPB 150 250 Output: Urine 800 750 Gifford 800 750 Other: Voiding Method Indwelling Catheter Indwelling Catheter Bowel Movement No Height 5 ft Body Mass Index (BMI) 28.3 Weight 9 lb 4 oz Length 20 in A/P: 33 y/o F w/ no significant PMHx, now pod 1, s/p elective repeat , bilateral salpingectomy. VSS, labs pending -F/U TOV -OOb as tolerated -Advance diet as tolerated -Pain regimen as ordered -Bowel regimen -Keep dressings/binder in place -Incentive spirometer above d/w attending Dr Chaudhry
--- NOTE | 2019-06-09 08:43 | PN ---
Progress Note (short form) - Note Progress Note: Anesthesia/pain Pt seen and examined S:Alert and awake, comfortable O: Vital Signs Temperature 98.9 F 06/09/19 05:53 Pulse Rate 70 06/09/19 05:53 Respiratory Rate 18 06/09/19 05:53 Blood Pressure 95/52 L 06/09/19 05:53 O2 Sat by Pulse Oximetry (%) 99 06/08/19 13:00 A/P: s/p c section Doing well post op Continue current care Charlie Mendoza MD
--- NOTE | 2019-06-09 10:40 | PN ---
Post Progress Note - Subjective Subjective: POD # 1. Feels well. OOB. Pain under good control. Type of Delivery: Repeat C/S Vital Signs: Vital Signs Temperature 98.9 F 06/09/19 05:53 Pulse Rate 70 06/09/19 05:53 Respiratory Rate 18 06/09/19 10:00 Blood Pressure 95/52 L 06/09/19 05:53 O2 Sat by Pulse Oximetry (%) 99 06/08/19 13:00 Breast Exam: Yes: Soft Uterus: Yes: Fundus Firm Incision: Yes: Dressing dry and intact Abdomen/GI: Yes: Abdomen soft Lochia: Yes: Rubra Lochia, amount: Moderate Extremities: Yes: Calves non-tender (good recovery.) - Labs Labs: CBC WBC 11.3 K/mm3 (4.0-10.0) H 06/09/19 07:20 RBC 3.89 M/mm3 (3.60-5.2) 06/09/19 07:20 Hgb 11.8 GM/dL (10.7-15.3) 06/09/19 07:20 Hct 34.9 % (32.4-45.2) 06/09/19 07:20 MCV 89.5 fl (80-96) 06/09/19 07:20 MCH 30.2 pg (25.7-33.7) 06/09/19 07:20 MCHC 33.7 g/dl (32.0-36.0) 06/09/19 07:20 RDW 15.8 % (11.6-15.6) H 06/09/19 07:20 Plt Count 167 K/MM3 (134-434) 06/09/19 07:20 MPV 8.9 fl (7.5-11.1) 06/09/19 07:20 Problem List - Problems (1) Normal Code(s): Z34.90 - ENCNTR FOR SUPRVSN OF NORMAL , UNSP, UNSP TRIMESTER Assessment/Plan I/P: Good recovery. OOB, shower. TREVER. All discussed. Anticipating discharge on D # 3.
[2019-06-09] MEDS ORDERED: IBUPROFEN 800 MG/8 ML IJ IVPB PRN (12:00)
[2019-06-09] MEDS ORDERED: IBUPROFEN 600 MG TABLET (FP) PO PRN (12:07)
[2019-06-09] MEDS: SIMETHICONE 80 MG TAB.CHEW (FP) PO PRN ×2 (13:45→19:33)
[2019-06-09] MEDS: oxyCODONE HCL 5 MG TABLET PO PRN ×2 (13:45→19:33)
[2019-06-09] MEDS: ACETAMINOPHEN 325 MG TABLET (FP) PO PRN (19:34)
[2019-06-10] MEDS: SIMETHICONE 80 MG TAB.CHEW (FP) PO PRN ×3 (01:01→15:49)
[2019-06-10] MEDS: oxyCODONE HCL 5 MG TABLET PO PRN ×2 (01:01→05:31)
[2019-06-10] MEDS: ACETAMINOPHEN 325 MG TABLET (FP) PO PRN ×3 (01:02→15:48)
[2019-06-10] MEDS: ELECTROLYTE-148 SOLN 1,000 ML IV SCH (01:04)
[2019-06-10] MEDS ORDERED: IBUPROFEN 800 MG/8 ML IJ IVPB PRN (07:45)
--- NOTE | 2019-06-10 08:23 | PN ---
Progress Note (short form) - Note Progress Note: POD 2, s/p repeat , bilateral salpingectomy Pt seen and examined. Reports she is feeling well. Has some pain at incision site, managed with pain regimen. Has been oob without issue. Tolerating PO. Voiding without issue. Denies cp/sob, n/v/d. Vital Signs Temp 98.5 F 06/09/19 21:03 Pulse 73 06/09/19 21:03 Resp 18 06/09/19 21:03 BP 98/60 06/09/19 21:03 Pulse Ox 99 06/08/19 13:00 Intake & Output 06/09/19 06/09/19 06/10/19 11:59 23:59 11:59 Intake Total 1837 375 Output Total 750 1600 Balance 1087 -1225 Intake: IV 1587 375 ns+20 units pitocin 1587 375 IVPB 250 Output: Urine 750 1600 Gifford 750 Void 1600 Other: Voiding Method Indwelling Catheter Toilet Bowel Movement No CBC, BMP 06/09/19 07:20 A/P: 33 y/o F w/ no significant PMHx, now pod 2, s/p elective repeat , bilateral salpingectomy. VSS -OOb as tolerated -Diet -Pain regimen as ordered -Bowel regimen -Keep dressings/binder in place -Incentive spirometer -Plan for d/c tomorrow above d/w attending Dr Chaudhry
[2019-06-10] MEDS: IBUPROFEN 600 MG TABLET (FP) PO PRN (15:48)
[2019-06-11] MEDS: IBUPROFEN 600 MG TABLET (FP) PO PRN ×2 (02:46→14:08)
[2019-06-11] MEDS: SIMETHICONE 80 MG TAB.CHEW (FP) PO PRN ×2 (02:46→14:08)
[2019-06-11] MEDS: ACETAMINOPHEN 325 MG TABLET (FP) PO PRN ×2 (02:47→14:09)
--- NOTE | 2019-06-11 08:26 | PN ---
Progress Note (short form) - Note Progress Note: POD 3, s/p repeat , bilateral salpingectomy Pt seen and examined. Reports she is feeling well, endorses productive cough beginning overnight. Has some pain at incision site, managed with pain regimen. Has been oob without issue. Tolerating PO. Voiding without issue. Had BM yesterday. Denies cp/sob, n/v/d. Vital Signs Temp 97.8 F 06/10/19 21:29 Pulse 72 06/10/19 21:29 Resp 18 06/10/19 21:29 BP 112/62 06/10/19 21:29 Pulse Ox 99 06/08/19 13:00 Intake & Output 06/10/19 06/10/19 06/11/19 11:59 23:59 11:59 Other: Voiding Method Toilet Toilet Gen: awake, alert, nad Resp: CTA b/l anteriorly CV: rrr, s1s2 Abdomen: binder in place, dressing c/d/i, incision c/d/i, no erythema or drainage A/P: 33 y/o F w/ no significant PMHx, now pod 3, s/p elective repeat , bilateral salpingectomy. afebrile, VSS -CBC pending -Robitussin ordered for cough, IS strongly encouraged, pt should take home with her -OOb as tolerated -Diet -Pain regimen as ordered -Bowel regimen -Keep dressings/binder in place -Plan for d/c later today above d/w attending Dr Chaudhry
[2019-06-11] MEDS ORDERED: guaiFENesin 200 MG/10 ML 10 ML UNIT-DOSE CUPS PO PRN (08:30)
--- NOTE | 2019-06-11 09:11 | PN ---
Post Progress Note Type of Delivery: Repeat C/S Vital Signs: Vital Signs Temperature 97.8 F 06/10/19 21:29 Pulse Rate 72 06/10/19 21:29 Respiratory Rate 18 06/10/19 21:29 Blood Pressure 112/62 06/10/19 21:29 O2 Sat by Pulse Oximetry (%) 99 06/08/19 13:00 Abdomen/GI: Yes: Abdomen soft, Passing flatus, Tolerating PO - Labs Labs: CBC WBC 11.3 K/mm3 (4.0-10.0) H 06/09/19 07:20 RBC 3.89 M/mm3 (3.60-5.2) 06/09/19 07:20 Hgb 11.8 GM/dL (10.7-15.3) 06/09/19 07:20 Hct 34.9 % (32.4-45.2) 06/09/19 07:20 MCV 89.5 fl (80-96) 06/09/19 07:20 MCH 30.2 pg (25.7-33.7) 06/09/19 07:20 MCHC 33.7 g/dl (32.0-36.0) 06/09/19 07:20 RDW 15.8 % (11.6-15.6) H 06/09/19 07:20 Plt Count 167 K/MM3 (134-434) 06/09/19 07:20 MPV 8.9 fl (7.5-11.1) 06/09/19 07:20 Problem List - Problems (1) Normal Code(s): Z34.90 - ENCNTR FOR SUPRVSN OF NORMAL , UNSP, UNSP TRIMESTER Assessment/Plan POD # # Doing well. Afebrile. BM yes. Incision clean and dry. Mild cough - chest clear. IMP: Good recovery. PLAN: Discharge today. F/U office in 3 weeks. Instructions given.
[2019-06-11 09:55] LABS: HEMATOCRIT 34.3 % (32.4-45.2); HEMOGLOBIN 11.4 GM/dL (10.7-15.3); MCH 29.9 pg (25.7-33.7); MCHC 33.3 g/dl (32.0-36.0); MEAN CELL VOLUME 89.8 fl (80-96); MEAN PLT VOLUME 8.3 fl (7.5-11.1); PLATELET COUNT 220 K/MM3 (134-434); RBC 3.82 M/mm3 (3.60-5.2); RDW 15.9 % (11.6-15.6)
--- NOTE | 2019-06-11 11:45 | PATH ---
Surgical Pathology Report Patient Name: LUIS WILL [facility]. Rec. #: [id number] /Age/Gender: 1985 (Age: 33) / F Account: [id number] Location: [facility] OBS/DUTY ENGINEER Taken: 06/08/2019 Received: 06/09/2019 Reported: 06/11/2019 Physicians: Adonay Bales MD Specimen(s) Received A: PLACENTA B: PORTION OF RIGHT FALLOPIAN TUBE C: PORTION OF LEFT FALLOPIAN TUBE Clinical History , previous x 2, appendectomy 2000 Final Diagnosis A. PLACENTA: THIRD TRIMESTER PLACENTA WITH FOCAL CALCIFICATIONS. TRIVASCULAR CORD. MEMBRANES WITH NO DIAGNOSTIC ABNORMALITIES. B. PORTION OF RIGHT FALLOPIAN TUBE: COMPLETE CROSS SECTION OF THE FALLOPIAN TUBE IDENTIFIED. PARATUBAL CYSTS PRESENT. C. PORTION OF LEFT FALLOPIAN TUBE: COMPLETE CROSS SECTION OF THE FALLOPIAN TUBE IDENTIFIED. Electronically Signed Yonny Baker M.D. Gross Description A. The specimen is received fresh labeled "placenta" and is a 627 gram, 21 x 19 x 2.1 cm. placenta with attached membranes and umbilical cord. The attached membranes are glistening and translucent and insert marginally. The umbilical cord measures 19 cm. in length and averages 1.3 cm. in diameter. The cord inserts centrally, 6 cm from the margin. No true knots or strictures are identified. Cut surface of the umbilical cord reveals 3 vessels. The surface is lee-blue with minimal fibrin deposition and appropriate caliber vessels. The maternal surface is red-brown with focal defects. Sectioning reveals red-brown, spongy parenchyma. No lesions are identified. Hydrator sections are submitted in three cassettes as follows: 1- membrane rolls and umbilical cord; 2-3- full thickness sections of placenta. B. Received fresh labelled "portion of right fallopian tube" is a 6.5 cm long by 0.5 cm in diameter portion of tissue consistent with a portion of fallopian tube. The fimbriated end is identified. Multiple paratubal cysts are present. Sectioned and totally submitted in one cassette. C. Received fresh labelled "portion of left fallopian tube" is a 5.0 cm long by 0.6 cm in diameter portion of tissue consistent with a portion of fallopian tube. The fimbriated end is identified. No focal lesions are identified. Sectioned and totally submitted in one cassette. __ LAUREN/06/09/2019 elizabeth/06/09/2019
[2019-06-11 12:08] VITALS: BP 101/69; PULSE 75; TEMP 98.2
--- NOTE | 2019-06-11 12:27 | DS ---
Physical Exam: SUBJECTIVE: Patient seen and examined. Pt seen and examined. Reports she is feeling well, endorses productive cough beginning overnight. Has some pain at incision site, managed with pain regimen. Has been oob without issue. Tolerating PO. Voiding without issue. Had BM yesterday. Denies cp/sob, n/v/d. OBJECTIVE: Vital Signs Period Temp Pulse Resp BP Sys/Mcdermott Pulse Ox Last 24 Hr 97.8 F-98.2 F 72-75 18-20 101-112/62-69 PHYSICAL EXAM Gen: awake, alert, nad Resp: CTA b/l anteriorly CV: rrr, s1s2 Abdomen: binder in place, dressing c/d/i, incision c/d/i, no erythema or drainage LABS Laboratory Results - last 24 hr 06/11/19 09:37 WBC 8.0 RBC 3.82 Hgb 11.4 Hct 34.3 MCV 89.8 MCH 29.9 MCHC 33.3 RDW 15.9 H Plt Count 220 D MPV 8.3 HOSPITAL COURSE: The patient was admitted to the Med-Surg Unit after an elective and sterilization for a term . Now s/p repeat , bilateral salpingectomy. The patient's pre-operative antibiotics (Azithromycin) were continued and completed in house. The day after surgery, the patient ambulated the hallways with assistance. Narcotic and non-narcotic pain management control was achieved with an oral and IV approach. Shanelle-operative IV ABX were administered. DVT prophylaxis was achieved with SCDs and early ambulation. Narcotic scripts were checked with [facility] prior to escribe. The discharge instructions and an oral pain management plan were reviewed with the patient. All questions answered. Above plan discussed with Dr. Bales and agreed. Date of Admission:06/08/19 Date of Discharge: 06/11/19 Minutes to complete discharge: 25 Discharge Summary Reason For Visit: Condition: Good - Instructions Diet, Activity, Other Instructions: Dr. Bales BIGHT MAKER discharge instructions Physical activity: Resume your normal everyday activity as tolerated no heavy lifting or exercise until seen by your surgeon. You may walk unlimited amounts and climb stairs. You may resume driving the car when you feel safe and comfortable behind the wheel and are no longer taking narcotics. No sexual activity until cleared by Dr Bales. Wound care: If you have a bandage, leave it on, and keep dry for 48 hours. After that time discard the outer bandage. If they are tapes on the skin under the outer of bandage leave them in place. They will peel off in the next 7 to 10 days. Do Not Peel them off. If there are tapes present on the skin, you may shower over them but do not submerge the incision. Do not apply lotion or ointments to incision. Diet: There are no dietary restrictions. Eat healthy, high-fiber foods. Drink 6 to 8 glasses of liquid each day. This will assist in keeping your bowels are regular. Pain management: You may take Tylenol or acetaminophen or Ibuprofen (for example, Motrin, Advil etc.) every 6 hours as needed for pain. Call Dr. Bales for any of the following: * Severe pain not relieved by medication * Fever of 101 or higher * Excessive bleeding or drainage on dressing * * If you experience any chest pain or shortness of breath please seek emergency treatment immediately. Call the office at [phone] for an appointment in seven to 10 days. Disposition: HOME - Home Medications Comprehensive Discharge Medication List: Ambulatory Orders Vits/Iron/Folic Acid [Select-Ob Chewable Caplet] 1 each PO DAILY Azithromycin 250 mg PO DAILY 06/08/19 Oxycodone HCl/Acetaminophen [Percocet 5-325 mg Tablet] 1 - 2 tab PO Q4H PRN #15 tablet MDD 6 06/08/19 Guaifenesin [Robitussin] 10 ml PO Q6H PRN #8 oz 06/11/19 This patient is new to me today: Yes Date on this admission: 06/11/19 Emergency Visit: No Critical Care patient: No - Discharge Referral Referred to [facility] No
== END 2019-06-11 14:30 | disposition home or self-care (01) | DRG 540 ==
LOC: JLDR 08:50 → J3W 13:05
PROVIDERS: ADMIT Specialist; ATTEND Specialist
PROC: 10D00Z1 Extraction of Products of Conception, Low, Open Approach (ICD-10-PCS; principal; 2019-06-08)
PROC: 0UT70ZZ Resection of Bilateral Fallopian Tubes, Open Approach (ICD-10-PCS; 2019-06-08)
DX: O34.211 Maternal care for low transverse scar from previous cesarean delivery (principal); Z3A.39 39 weeks gestation of pregnancy; Z37.0 Single live birth; Z30.2 Encounter for sterilization
CPT/HCPCS: 36415; 85027; 88302-TC; 88307-TC; J0131

== ENCOUNTER 2019-12-01 18:54 | Emergency (ER) | payer OTHER ==
[2019-12-01 19:01] VITALS: BP 101/67; PULSE 120; TEMP 100.3; BMI 21.4
[2019-12-01] MEDS ORDERED: ACETAMINOPHEN 500 MG TABLET (FP) PO ONE (19:01)
--- NOTE | 2019-12-01 19:01 | PDOC ---
Rapid Medical Evaluation Time Seen by Provider: 12/01/19 18:59 Medical Evaluation: Allergies Allergy/AdvReac Type Severity Reaction Status Date / Time No Known Allergies Allergy Verified 06/08/19 09:18 12/01/19 18:59 CC: flu-like symptoms PE: No focal findings Orders: tylenol Patient will proceed to ED for further evaluation. Discharge Disposition - Diagnosis Influenza-like symptoms - Referrals - Patient Instructions - Post Discharge Activity
--- NOTE | 2019-12-01 19:17 | PDOC ---
History of Present Illness - General Chief Complaint: Cold Symptoms Stated Complaint: BODY ACHES Time Seen by Provider: 12/01/19 18:59 - History of Present Illness Initial Comments: 12/01/19 19:15 34-year-old female without comorbidities presents for evaluation of flulike symptoms x1 day Past History - Past Medical History Allergies/Adverse Reactions: Allergies Allergy/AdvReac Type Severity Reaction Status Date / Time No Known Allergies Allergy Verified 12/01/19 19:02 Home Medications: Ambulatory Orders [id number]/Iron/Folic Acd [Select-Ob Chewable Caplet] 1 each PO DAILY 10/31/18 Azithromycin 250 mg PO DAILY 06/08/19 Oxycodone HCl/Acetaminophen [Percocet 5-325 mg Tablet] 1 - 2 tab PO Q4H PRN #15 tablet MDD 6 06/08/19 Guaifenesin [Robitussin] 10 ml PO Q6H PRN #8 oz 06/11/19 Oseltamivir Phosphate [Tamiflu] 75 mg PO BID #10 capsule 12/01/19 Asthma: No Cancer: No Cardiac Disorders: No COPD: No CHF: No DVT: No Diabetes: No HTN: No Seizures: No Thyroid Disease: No - Surgical History Abdominal Surgery: Yes Appendectomy: Yes Gastric Stapling: No Lung Surgery: No - Reproductive History (#): 4 Para: 2 Cervical CA: No Dysfunctional Uterine Bleeding: No Ectopic : No Endometrial CA: No Polycystic Ovaries: No Therapeutic (s) & number: No Tubal Ligation: No Spontaneous : 1 - Immunization History Immunization Up to Date: Yes - Psycho Social/Smoking Cessation Hx Smoking Status: No Smoking History: Never smoked Have you smoked in the past 12 months: No Number of Cigarettes Smoked Daily: 0 Hx Alcohol Use: No Drug/Substance Use Hx: No Substance Use Type: None Hx Substance Use Treatment: No Review of Systems - Review of Systems Constitutional: Yes: Chills, Diaphoresis, Fever, Malaise, Night Sweats HEENTM: Yes: Nose Congestion Respiratory: Yes: Cough Neurological: Yes: Headache *Physical Exam - Vital Signs Last Vital Signs Temp Pulse Resp BP Pulse Ox 100.3 F H 120 H 16 101/67 95 12/01/19 18:59 12/01/19 18:59 12/01/19 18:59 12/01/19 18:59 12/01/19 18:59 - Physical Exam 12/01/19 19:16 GENERAL: The patient is awake, alert, and fully oriented, in no acute distress. HEAD: Normal with no signs of trauma. EYES: sclera anicteric, conjunctiva clear. ENT: Ears normal tympanic membranes normal oropharynx clear uvula midline NECK: Normal range of motion LUNGS: Breath sounds equal, clear to auscultation bilaterally. No wheezes, and no crackles. HEART: S1 and S2 without murmur, rub or gallop. ABDOMEN: Soft, nontender, normoactive bowel sounds. No guarding, no rebound. No masses. EXTREMITIES: Normal range of motion, no edema. No clubbing or cyanosis. No cords, erythema, or tenderness. NEUROLOGICAL: Cranial nerves II through XII grossly intact. PSYCH: Normal mood, normal affect. SKIN: Warm, Dry, normal turgor, no rashes or lesions noted. Medical Decision Making - Medical Decision Making 12/01/19 19:16 We will treat for influenza based on symptoms. I have reviewed the pathophysiology with the patient. They are in agreement with the treatment plan all questions were answered to their satisfaction. Understanding for follow-up without fail was also conveyed to the patient. Again they are in agreement. Discharge - Discharge Information Problems reviewed: Yes Clinical Impression/Diagnosis: Influenza-like symptoms Condition: Stable Disposition: HOME - Admission No - Additional Discharge Information Prescriptions: Oseltamivir Phosphate [Tamiflu] 75 mg PO BID #10 capsule - Follow up/Referral Referrals: Giana Sanchez MD [Staff Physician] - - Patient Discharge Instructions Additional Instructions: Tylenol Motrin as directed for fever and body aches. Return to the emergency room for worsening symptoms and without fail follow-up with your primary care physician in 1 to 2 days for further evaluation and treatment options. Please take the Tamiflu as directed. Tylenol Motrin segn las indicaciones para fiebre y anyi corporales. Regrese a la rodríguez de emergencias para empeorar los sntomas y, sin falta, alma un seguimiento con gutierrez mdico de atencin primaria en 1 a 2 horowitz para obtener ms opciones de evaluacin y tratamiento. Por favor tome el Tamiflu jacqueline se le indique. - Post Discharge Activity
[2019-12-01] MEDS ORDERED: ACETAMINOPHEN 325 MG TABLET (FP) ONE (19:18)
== END 2019-12-01 19:21 | disposition home or self-care (01) ==
LOC: JERFT 18:54
DX: J11.1 Influenza due to unidentified influenza virus with other respiratory manifestations (principal)
CPT/HCPCS: 99283-25

== ENCOUNTER 2021-02-08 22:16 | Emergency (ER) | payer OTHER ==
[2021-02-08 22:26] VITALS: BMI 27.4
[2021-02-09] MEDS ORDERED: ACETAMINOPHEN 1000 MG/100 ML VIAL (NON FORMULARY) IVPB ONE (00:48)
[2021-02-09] MEDS ORDERED: ACETAMINOPHEN INJECTION 100 ML IVPB ONE (00:52)
[2021-02-09] MEDS ORDERED: SODIUM CHLORIDE 1,000 ML IV STA (00:53)
[2021-02-09 00:57] LABS: BASO % 0.7 % (0-2.0); EOS % 1.6 % (0-4.5); HEMATOCRIT 41.4 % (32.4-45.2); HEMOGLOBIN 13.8 GM/dL (10.7-15.3); MCH 29.3 pg (25.7-33.7); MCHC 33.3 g/dl (32.0-36.0); MEAN CELL VOLUME 88.2 fl (80-96); MEAN PLT VOLUME 7.7 fl (7.5-11.1); MONO % 10.5 % (3.8-10.2); NEUT % 72.2 % (42.8-82.8); PLATELET COUNT 281 K/MM3 (134-434); RBC 4.69 M/mm3 (3.60-5.2); RDW 14.4 % (11.6-15.6); WHITE BLOOD COUNT 11.4 K/mm3 (4.0-10.0)
[2021-02-09 01:18] LABS: EPI CELLS 13 /uL (0-25.1); HYALINE CASTS 2 /uL (0-3.1); URINE APPEARANCE CLOUDY; URINE BACTERIA 486 /uL (0-1359); URINE BILIRUBIN NEGATIVE (NEGATIVE); URINE COLOR YELLOW; URINE GLUCOSE (UA) NEGATIVE (NEGATIVE); URINE KETONE NEGATIVE (NEGATIVE); URINE LEUK ESTERASE NEGATIVE (NEGATIVE); URINE NITRITE NEGATIVE (NEGATIVE); URINE PROTEIN NEGATIVE (NEGATIVE); URINE RBC 119 /uL (0-23.9); URINE WBC 10 /uL (0-25.8)
[2021-02-09 01:34] LABS: CALCIUM 8.8 mg/dL (8.5-10.1)
[2021-02-09 01:35] LABS: ALBUMIN 3.8 g/dl (3.4-5.0); BLOOD UREA NITROGEN 8.6 mg/dL (7-18)
[2021-02-09 01:38] LABS: CREATININE 0.6 mg/dL (0.55-1.3)
[2021-02-09 01:39] LABS: BILIRUBIN,TOTAL 0.4 mg/dL (0.2-1)
[2021-02-09 02:48] VITALS: TEMP 98.3
[2021-02-09] MEDS ORDERED: AMOX TR/POT CLAV 875MG/125MG TABLETS (FP) PO ONE (03:37)
[2021-02-09] MEDS ORDERED: AMOX TR/POT CLAV 875MG/125MG TABLETS (FP) ONE (03:42)
[2021-02-10 07:07] LABS: SARS-CoV-2 NAA Not Detected (Not Detected)
== END 2021-02-09 03:48 | disposition home or self-care (01) ==
LOC: JER 22:16
PROC: 3E0333Z Introduction of Anti-inflammatory into Peripheral Vein, Percutaneous Approach (ICD-10-PCS; principal; 2021-02-08)
PROC: 3E0337Z Introduction of Electrolytic and Water Balance Substance into Peripheral Vein, Percutaneous Approach (ICD-10-PCS; 2021-02-08)
DX: K57.92 Diverticulitis of intestine, part unspecified, without perforation or abscess without bleeding (principal); D25.9 Leiomyoma of uterus, unspecified
CPT/HCPCS: 36415; 74177-TC; 76830-TC; 80053; 81003; 84703; 85025; 87086; 87804; 99285-25; C9803; J0131; U0003; U0005

== ENCOUNTER 2022-08-22 13:08 | Emergency (ER) | payer OTHER ==
[2022-08-22 13:19] VITALS: BMI 26.5
[2022-08-22] MEDS ORDERED: IBUPROFEN 600 MG TABLET (FP) PO ONE (14:09)
[2022-08-22 16:02] LABS: BASO % 0.4 % (0-2.0); EOS % 0.5 % (0-4.5); HEMATOCRIT 42.4 % (32.4-45.2); LYMPH % 11.5 % (8-40); MCH 28.8 pg (25.7-33.7); MEAN CELL VOLUME 87.4 fl (80-96); MONO % 12.4 % (3.8-10.2); NEUT % 75.2 % (42.8-82.8); PLATELET COUNT 266 10^3/uL (134-434); RBC 4.85 M/mm3 (3.60-5.2); RDW 14.1 % (11.6-15.6)
[2022-08-22 16:15] LABS: INR 1.06 (0.83-1.09); PROTHROMBIN TIME (PATIENT) 12.2 SEC (9.7-13.0)
[2022-08-22 16:16] LABS: ACTIVATED PTT 26.7 SECONDS (25.2-36.5)
[2022-08-22 16:21] LABS: CHLORIDE 108 mmol/L (98-107); SODIUM 140 mmol/L (136-145)
[2022-08-22 16:23] LABS: ALBUMIN 3.9 g/dl (3.4-5.0)
[2022-08-22 16:24] LABS: ANION GAP 10 MMOL/L (8-16); BLOOD UREA NITROGEN 9.8 mg/dL (7-18); CO2 22 mmol/L (21-32); GLUCOSE,RANDOM 75 mg/dL (74-106)
[2022-08-22 16:27] LABS: CREATININE 0.6 mg/dL (0.55-1.3); SGOT/AST 38 U/L (15-37); SGPT/ALT 82 U/L (13-61)
[2022-08-22 16:29] LABS: BILIRUBIN,TOTAL 0.4 mg/dL (0.2-1); TOT PROT 7.7 g/dl (6.4-8.2)
[2022-08-22 16:30] LABS: ALK PHOS 84 U/L (45-117)
[2022-08-22] MEDS ORDERED: KETOROLAC TROMETHAMINE 15 MG/ML VIAL IVPUSH ONE (16:40)
[2022-08-22 17:10] LABS: N-TERMINAL BNP 36.8 pg/ml (5-125)
[2022-08-22] MEDS ORDERED: KETOROLAC TROMETHAMINE 15 MG/ML VIAL ONE (17:41)
[2022-08-22 17:53] VITALS: BP 118/75; PULSE 98; RESP 18; TEMP 98.5
== END 2022-08-22 18:01 | disposition home or self-care (01) ==
LOC: JER 13:08
PROC: 3E0333Z Introduction of Anti-inflammatory into Peripheral Vein, Percutaneous Approach (ICD-10-PCS; principal; 2022-08-22)
DX: U07.1 COVID-19 (principal)
CPT/HCPCS: 0241U-QW; 36415; 71046-TC-FY; 80053; 83880; 84484; 84703; 85025; 85379; 85610; 85730; 86850; 86900; 86901; 93005; 93010; 99285-25

== ENCOUNTER 2024-12-10 07:07 | Emergency (ER) | payer OTHER ==
[2024-12-10 07:20] VITALS: BP 117/84; PULSE 69; RESP 20; TEMP 98.4; BMI 26.1
[2024-12-10] MEDS ORDERED: ONDANSETRON 4 MG/2 ML VIAL ONE (07:47)
[2024-12-10] MEDS ORDERED: ACETAMINOPHEN INJECTION 100 ML ONE (07:47)
[2024-12-10] MEDS ORDERED: FAMOTIDINE 20 MG/50 ML IVPB 20 MG/50 ML MG IVPB ONE (07:54)
[2024-12-10] MEDS: ACETAMINOPHEN 1000 MG/100 ML BAG IVPB ONE (08:40)
[2024-12-10] MEDS: SODIUM CHLORIDE 1,000 ML IV STA (08:40)
[2024-12-10] MEDS: ONDANSETRON 4 MG/2 ML VIAL IVPUSH ONE (08:40)
[2024-12-10 08:50] LABS: BASO % 1.1 % (0-2.0); EOS % 3.1 % (0-4.5); HEMATOCRIT 37.1 % (32.4-45.2); HEMOGLOBIN 11.9 GM/dL (10.7-15.3); LYMPH % 24.9 % (8-40); MCH 26.4 pg (25.7-33.7); MCHC 32.1 g/dl (32.0-36.0); MEAN CELL VOLUME 82.2 fl (80-96); MEAN PLT VOLUME 9.1 fl (7.5-11.1); MONO % 8.2 % (3.8-10.2); NEUT % 62.7 % (42.8-82.8); PLATELET COUNT 261 10^3/uL (134-434); RBC 4.52 M/mm3 (3.60-5.2); RDW 15.7 % (11.6-15.6); WHITE BLOOD COUNT 6.4 K/mm3 (4.0-10.0)
[2024-12-10] MEDS: FAMOTIDINE 20 MG/50 ML IVPB 20 MG/50 ML MG IVPB ONE (09:01)
[2024-12-10 09:09] LABS: POTASSIUM 4.2 mmol/L (3.5-5.1)
[2024-12-10 09:11] LABS: ALBUMIN 3.6 g/dl (3.4-5.0); BLOOD UREA NITROGEN 8.1 mg/dL (7-18)
[2024-12-10 09:12] LABS: CALCIUM 8.5 mg/dL (8.5-10.1)
[2024-12-10 09:13] LABS: CREATININE 0.5 mg/dL (0.55-1.3)
[2024-12-10 09:15] LABS: BILIRUBIN,TOTAL 0.3 mg/dL (0.2-1); TOT PROT 7.2 g/dl (6.4-8.2)
[2024-12-10 14:32] LABS: HIV INTERPRETATION NEGATIVE (NEGATIVE)
== END 2024-12-10 11:49 | disposition home or self-care (01) ==
LOC: JER 07:07
PROC: 3E033GC Introduction of Other Therapeutic Substance into Peripheral Vein, Percutaneous Approach (ICD-10-PCS; principal; 2024-12-10)
PROC: 3E033NZ Introduction of Analgesics, Hypnotics, Sedatives into Peripheral Vein, Percutaneous Approach (ICD-10-PCS; 2024-12-10)
PROC: 3E033GC Introduction of Other Therapeutic Substance into Peripheral Vein, Percutaneous Approach (ICD-10-PCS; 2024-12-10)
DX: K80.20 Calculus of gallbladder without cholecystitis without obstruction (principal); R11.0 Nausea; R10.13 Epigastric pain; R10.11 Right upper quadrant pain
CPT/HCPCS: 36415; 76705-TC; 80053; 83690; 85025; 86803; 87389; 99285-25; J0131

== ENCOUNTER 2025-01-19 01:42 | Inpatient (IN) | payer OTHER ==
[2025-01-19 01:46] VITALS: BMI 26.5
[2025-01-19] MEDS ORDERED: ONDANSETRON 4 MG/2 ML VIAL ONE ×2 (02:09→10:39)
[2025-01-19] MEDS ORDERED: morphine SULFATE 4 MG/ML VIAL ONE (02:09)
[2025-01-19] MEDS: ONDANSETRON 4 MG/2 ML VIAL IVPUSH ONE (02:26)
[2025-01-19] MEDS: LACTATED RINGERS SOLUTION 1000 ML INFUS.BAG IV ONE (02:26)
[2025-01-19] MEDS: morphine CARPU-JECT 4 MG/1 ML DISP.SYRIN IVPUSH ONE (02:26)
[2025-01-19 02:28] LABS: ABSOLUTE IMMATURE GRANULOCYTES 0.04 x10^3/uL (0.0-0.031); BASOPHILS # 0.05 x10^3/uL (0.01-0.08); EOSINOPHIL % 3.5 % (0.7-5.8); EOSINOPHILS # 0.33 x10^3/uL (0.04-0.36); HEMATOCRIT 38.6 % (34.1-44.9); HEMOGLOBIN 12.1 g/dL (11.2-15.7); MCHC 31.3 g/dl (32.2-35.5); MEAN PLT VOLUME 9.7 fl (9.4-12.3); MONOCYTE % 11.6 % (4.7-12.5); PLATELET COUNT 278 x10^3/uL (182-369)
[2025-01-19 02:36] LABS: INR 0.99 (0.83-1.09); PROTHROMBIN TIME (PATIENT) 10.8 SEC (9.7-13.0)
[2025-01-19 02:38] LABS: ACTIVATED PTT 25.4 SECONDS (25.2-36.5)
[2025-01-19 03:09] LABS: POTASSIUM 3.9 mmol/L (3.5-5.1)
[2025-01-19 03:11] LABS: CALCIUM 8.8 mg/dL (8.5-10.1)
[2025-01-19 03:12] LABS: ALBUMIN 3.5 g/dl (3.4-5.0); BLOOD UREA NITROGEN 10.6 mg/dL (7-18); MAGNESIUM 2.1 mg/dL (1.8-2.4)
[2025-01-19 03:15] LABS: CREATININE 0.7 mg/dL (0.55-1.3)
[2025-01-19 03:16] LABS: BILIRUBIN,TOTAL 0.1 mg/dL (0.2-1); TOT PROT 7.3 g/dl (6.4-8.2)
[2025-01-19 03:54] LABS: HCG,QUALITATIVE URINE Negative
[2025-01-19 03:55] LABS: EPI CELLS 20 /uL (0-25.1); HYALINE CASTS 1 /uL (0-3.1); PH,URINE 5.5 (5.0-8.0); URINE APPEARANCE CLEAR; URINE BACTERIA 2151 /uL (0-1359); URINE BILIRUBIN NEGATIVE (NEGATIVE); URINE COLOR YELLOW; URINE GLUCOSE (UA) NEGATIVE (NEGATIVE); URINE KETONE NEGATIVE (NEGATIVE); URINE LEUK ESTERASE NEGATIVE (NEGATIVE); URINE NITRITE NEGATIVE (NEGATIVE); URINE PROTEIN NEGATIVE (NEGATIVE); URINE UROBILINOGEN 0.2 mg/dL (0.2-1.0); URINE WBC 43 /uL (0-25.8)
[2025-01-19] MEDS ORDERED: ONDANSETRON 4 MG/2 ML VIAL IVPUSH PRN (05:16)
[2025-01-19] MEDS ORDERED: MORPHINE SULFATE 2 MG/ML SYRINGE IVPUSH PRN (05:24)
[2025-01-19] MEDS ORDERED: ACETAMINOPHEN 1000 MG/100 ML BAG IVPB PRN ×3 (05:27→12:52)
[2025-01-19] MEDS: LACTATED RINGERS SOLUTION 1,000 ML/1,000 ML INFUS.BAG IV SCH (06:42)
[2025-01-19 06:46] LABS: URINE RBC 107.7 /uL (0-23.9); YEAST NONE SEEN (NEGATIVE)
[2025-01-19] MEDS ORDERED: ROCURONIUM BROMIDE 50 MG/5 ML SYRINGE ONE (10:39)
[2025-01-19] MEDS ORDERED: MIDAZOLAM HCL 2 MG/2 ML SINGLE DOSE VIAL ONE (10:39)
[2025-01-19] MEDS ORDERED: PROPOFOL 40 ML ONE (10:39)
[2025-01-19] MEDS ORDERED: SUCCINYLCHOLINE CHLORIDE 200 MG/10 ML SYRINGE ONE (10:39)
[2025-01-19] MEDS ORDERED: DEXAMETHASONE SOD PHOSPHATE 4 MG/1 ML VIAL ONE (10:39)
[2025-01-19] MEDS: HEPARIN NA (PORCINE) 5,000 UNITS/ML 1ML VIAL SQ ONE (10:44)
[2025-01-19] MEDS: cefOXitin SODIUM 2 GM VIAL (RESTRICTED TO ID) IVPB ONE (10:45)
[2025-01-19] MEDS ORDERED: cefOXitin SODIUM 2 GM VIAL (RESTRICTED TO ID) IVPB ONE (10:51)
[2025-01-19] MEDS ORDERED: HEPARIN NA (PORCINE) 5,000 UNITS/ML 1ML VIAL ONE (10:51)
[2025-01-19] MEDS: BUPIVACAINE HCL/PF 0.25% (2.5MG/ML) 10 ML VIAL IJ ONE (11:02)
[2025-01-19] MEDS ORDERED: SUGAMMADEX SODIUM 200 MG/2 ML VIAL ONE (11:35)
[2025-01-19] MEDS ORDERED: LACTATED RINGERS SOLUTION 1,000 ML IV SCH (12:15)
[2025-01-19] MEDS ORDERED: ACETAMINOPHEN INJECTION 100 ML ONE (12:17)
[2025-01-19] MEDS: ACETAMINOPHEN 1000 MG/100 ML BAG IVPB ONE (12:18)
[2025-01-19] MEDS: LACTATED RINGERS SOLUTION 1,000 ML IV SCH (14:08)
[2025-01-19 14:20] VITALS: RESP 18
[2025-01-19] MEDS: ONDANSETRON 4 MG/2 ML VIAL IVPUSH PRN (14:44)
[2025-01-19] MEDS: oxyCODONE HCL 5 MG TABLET PO PRN (14:58)
[2025-01-19] MEDS: ACETAMINOPHEN 1000 MG/100 ML BAG IVPB SCH (16:47)
[2025-01-19] MEDS: KETOROLAC TROMETHAMINE 15 MG/ML VIAL IVPUSH SCH (18:42)
[2025-01-20 09:15] LABS: HEMATOCRIT 36.1 % (34.1-44.9); HEMOGLOBIN 11.5 g/dL (11.2-15.7); MCHC 31.9 g/dl (32.2-35.5); MEAN CELL VOLUME 81.3 fl (79.4-94.8); MEAN PLT VOLUME 10.2 fl (9.4-12.3); PLATELET COUNT 264 x10^3/uL (182-369); RDW 15.1 % (12.1-16.8)
[2025-01-20 09:39] VITALS: BP 108/72; PULSE 77; TEMP 98.6
[2025-01-20 09:51] LABS: POTASSIUM 3.6 mmol/L (3.5-5.1)
[2025-01-20 10:18] LABS: ALBUMIN 3.1 g/dl (3.4-5.0)
[2025-01-20 10:19] LABS: BLOOD UREA NITROGEN 5.4 mg/dL (7-18)
[2025-01-20 10:22] LABS: CREATININE 0.5 mg/dL (0.55-1.3); PHOSPHOROUS 2.8 mg/dL (2.5-4.9)
[2025-01-20 10:23] LABS: BILIRUBIN,TOTAL 0.4 mg/dL (0.2-1); TOT PROT 6.4 g/dl (6.4-8.2)
== END 2025-01-20 12:51 | disposition home or self-care (01) | DRG 263 ==
LOC: JER 01:42 → JERBED 04:09 → J5S 06:34 → OBSVTOIN 09:25
PROVIDERS: ADMIT Hospitalist
PROC: 0FT44ZZ Resection of Gallbladder, Percutaneous Endoscopic Approach (ICD-10-PCS; principal; 2025-01-19 10:37)
DX: K80.00 Calculus of gallbladder with acute cholecystitis without obstruction (principal); R10.9 Unspecified abdominal pain; R11.2 Nausea with vomiting, unspecified
CPT/HCPCS: 36415; 74181-TC; 80053; 81003; 83690; 83735; 84100; 84703; 85025; 85027; 85610; 85730; 86850; 86900; 86901; 87086; 88304-TC; 93005; 93010; 94010; 94760; 99285-25; G0378; J0131; J1644